=== PATIENT | female | born 1995 | race Caucasian/White ===

== ENCOUNTER 2022-07-16 22:45 | Outpatient (REF) | payer OTHER, SELFPAY ==
[2022-07-21 16:09] LABS: Age Gdln ACOG Testing Note (.); IGP, rfx Aptima HPV ASCU Note (.)
== END 2022-07-16 22:46 ==
LOC: LAB 22:45
PROVIDERS: PCP Obstetrics & Gynecology; Visit Provider Obstetrics & Gynecology
DX: Z12.4 Encounter for screening for malignant neoplasm of cervix (principal)
CPT/HCPCS: G0145

== ENCOUNTER 2023-10-19 18:54 | Outpatient (REF) | payer OTHER, SELFPAY | END 2023-10-19 18:55 | disposition home or self-care (01) | LOC: LAB 18:54 | PROVIDERS: PCP Obstetrics & Gynecology; Visit Provider Obstetrics & Gynecology | DX: Z01.419 Encounter for gynecological examination (general) (routine) without abnormal findings (principal) | CPT/HCPCS: 88175 ==

== ENCOUNTER 2024-10-24 19:41 | Outpatient (REF) | payer OTHER, SELFPAY ==
--- OUTSIDE RECORDS SUMMARY | 2023-06-08 09:12 | XMS_ITS ---
Author Organization [facility] in [place] Address [address] [place] [address] Care Team Providers Care Clinical Law Professor Name Role Phone Gray Mitchell Primary Care Provider ANGE MITCHELL Unavailable [phone] REASON FOR VISIT Allergy Injection Encounters Encounter Location Date Provider Diagnosis [facility] [address] [facility] [place] [address] 06/08/2023 ANGE MITCHELL Plan Of Treatment No Information Progress Notes * Lacy PULIDODuncanOB:1995 ( 28 yo F)Acc No.[id number]:06/08/2023 Patient: Sarah AGUIRRE :1995 A ge:28 Y S ex:Female Address:[address] [place] [id number] * true * Date: Generated for Baljeet greenwood/Thang/eTransmitting on: 0 10/24/2024 07:44 PM EDT
--- OUTSIDE RECORDS SUMMARY | 2023-06-09 09:15 | XMS_ITS ---
Author Organization [facility] in [place] Address [address] [place] [address] Care Team Providers Care Competitive Intelligence Analyst Name Role Phone [place] Gray Primary Care Provider [phone] ANGE WYMAN Unavailable [phone] REASON FOR VISIT presents to the office for Kenalog 80mg (Allergies) Encounters Encounter Location Date Provider Diagnosis [address] [address] 06/09/2023 ANGE WYMAN Acute allergic rhinitis J30.9 Assessments Encounter Date Diagnosis (ICD Code) Assessment Notes Treatment Notes Treatment Clinical Notes Section Notes 06/09/2023 Acute allergic rhinitis (ICD-10 - J30.9) Plan Of Treatment No Information Medications Administered Medication Instructions Date of Administration Dosage Notes Kenalog-40 06/09/2023 80 mg Progress Notes * Lacy PULIDODuncanOB:1995 ( 28 yo F)Acc No.[id number]:06/09/2023 Progress Note Patient: Sarah AGUIRRE Provider: Sheyla Wyman M.D. :1995 A ge:28 Y S ex:Female Date:06/09/2023 Address:[address] [place] [id number] Check In:01:11 PM ESTCheck O ut:01:13 PM EST Subjective: * Chief Complaints: * 1 . presents to the office for Kenalog 80mg (Allergies). * Active Problem List J30.9 Acute allergic rhini tis Modified On:04/21/2022/U Status:confirmed J01.90 Acute sinus infectio n Modified On:12/17/2022 Status:confirmed U07.1 COVID-19 Modified On:02/01/2023U Status:confirmed * Medical History: Objective: * Vitals: Assessment: * Assessment: 1. A cute allergic rhinitis - J30.9 (Primary) Plan: * Treatment: * Therapeutic Injections: Kenalog, 40 mg/mL : 80 mg (Route: Intramuscular) given by LESLEE Sanchez on left deltoid (Acute allergic rhinitis) * Procedure Codes: 9 6372 THERAP.INJ. OF MED. INTRAMUSCULAR OR SUBCUTANEOUS, J3301 Kenalog, 40 mg/mL, Units: 8.00 * * Sign off status: Completed Visit Status: C HK (Check Out) true * Provider: Sheyla Wyman M.D. Date: 0 06/09/2023 Generated for Baljeet greenwood/Thang/Zacharyitting on: 0 10/24/2024 12:49 PM EDT
--- OUTSIDE RECORDS SUMMARY | 2024-01-12 09:45 | XMS_ITS ---
Author Organization [facility] in [place] Address [address] [place] [address] Care Team Providers Care Purchasing And Claims Supervisor Name Role Phone Gray Wyman Primary Care Provider Allergies No Known Allergies REASON FOR VISIT Requesting injection for allergies Medications Medication SIG (Take, Route, Frequency, Duration) Notes Start Date End Date Status metFORMIN HCl 500 MG 1 tablet with a kaye l Orally Once a day Active ZyrTEC 10 MG 1 tablet Orally Once a day Active Spironolactone 50 MG 1 tablet Orally Onc e a day Active Vitamin D (Ergocalciferol) 59137 UNIT 1 capsule Orally Active Social History Tobacco Use: Social History Observation Description Date Details (start date - stop date) Never Smoker NA - NA Tobacco Use/Smoking Question Answer Notes Patient is a nonsmoker AUDIT-C (Standard) Question Answer Notes Did you have a drink containing alcohol in the p ast year? No Points 0 Interpretation Negative Vital Signs Weight 268 lbs 01/12/2024 Height 63 in 01/12/2024 Blood pressure systolic 128 mm Hg 01/12/20 24 Blood pressure diastolic 86 mm Hg 024 BMI 47.47 kg/m2 01/12/2024 Encounters Encounter Location Date Provider Diagnosis [facility] [address] [place] [address] 01/12/2024 Gray Wyman Acute non-recurrent sinusitis, unspecified location J01.90 and Nasal congestion R09.81 Assessments Encounter Date Diagnosis (ICD Code) Assessment Notes Treatment Notes Treatment Clinical Notes Section Notes 01/12/2024 Acute non-recurrent sinusitis, unspecified location (ICD-10 - J01.90) Rest and drink more liquids, especially water. You may use a humidifier or vaporizer to help keep the drainage moist. Vohd-hpa-tpioadi Nasal Saline may help the stuffy and runny nose. Use Ibuprofen and or Tylenol as needed for fever, chills, body aches or pain. Children 5 years old should not be given etll-izi-ilhyztx cough and cold medications such as guaifenesin and dextromethorphan. If you're over age 5, you may try eiqx-hmk-gkqjnhw cold medications such as guaifenesin and dextromethorphan, or multi-symptom cold reliever such as Dayquil to help reduce the symptoms. Antibiotics have been prescribed. You should take these until completed and follow the directions. Antibiotics can sometimes cause upset stomach, and in rare cases, serious allergic reactions or serious gastrointestinal problems. If you start having severe abdominal pain, severe vomiting, or bloody diarrhea, you should be reevaluated by your physician or urgent care immediately. Follow up with your Primary Care Provider or return to clinic if symptoms do not improve within 3-5 days 01/12/2024 Nasal congestion (ICD-10 - R09.81) Plan Of Treatment Treatment Notes Assessment Notes Acute non-recurrent sinusiti s, unspecified location Rest and drink more liquids, especially water. You may use a humidifier or vaporizer to help keep the drainage moist. Rsdv-afb-zqhuixp Nasal Saline may help the stuffy and runny nose. Use Ibuprofen and or Tylenol as needed for fever, chills, body aches or pain. Children 5 years old should not be given depg-yul-mmvhzkn cough and cold medications such as guaifenesin and dextromethorphan. If you're over age 5, you may try nfcv-aet-xxmfgjd cold medications such as guaifenesin and dextromethorphan, or multi-symptom cold reliever such as Dayquil to help reduce the symptoms. Antibiotics have been prescribed. You should take these until completed and follow the directions. Antibiotics can sometimes cause upset stomach, and in rare cases, serious allergic reactions or serious gastrointestinal problems. If you start having severe abdominal pain, severe vomiting, or bloody diarrhea, you should be reevaluated by your physician or urgent care immediately. Follow up with your Primary Care Provider or return to clinic if symptoms do not improve within 3-5 days Next Appt Details Follow Up: 3-5 days if not i mproving, Reason: Medications Administered Medication Instructions Date of Administration Dosage Notes Triamcinolone 40 mg/ml 01/12/2024 80 mg Progress Notes * Kavitha PULIDOOB:1995 ( 28 yo F)Acc No.[id number]:01/12/2024 Progress Note Patient: Sarah AGUIRRE Provider: Sheyla Wyman ([facility])MD :1995 A ge:28 Y S ex:Female Date:01/12/2024 Address:[address] [place], [place] [phone] Check In:01:40 PM ESTCheck O ut:02:14 PM EST Subjective: * Chief Complaints: * R equesting injection for allergies * HPI: G eneral: has PCOS _ on meds feels like allergies. S inusitis: The patient complains of symptoms of sinus infection. The symptoms have been present for 1-2 days. The symptoms are moderate. Symptomatic treatment has included OTC medication. Associated symptoms include headache, facial pain, runny nose, nasal congestion. D epression Screening: PHQ-2 (2015 Edition) L ittle interest or pleasure in doing things??Not at all F eeling down, depressed, or hopeless? N ot at all T otal Score 0 * ROS: S kin: Rash d enies. E NT: Comments S ee HPI for details. C ardiovascular: Edema d enies. P alpitations d enies. ? R espiratory: Chest pain d enies. C ough d enies. W heezing?denies. G astrointestinal: Abdominal pain d enies. N ausea d enies. V omiting d enies. * Active Problem List J30.9 Acute allergic rhini tis Modified On:04/21/2022/U Status:confirmed J01.90 Acute sinus infectio n Modified On:12/17/2022/U Status:confirmed U07.1 COVID-19 Modified On:02/01/2023/U Status:confirmed * Medical History: * Surgical History: F racture right radius 2005 * Hospitalization/Major Diagno stic Procedure: D enies Past Hospitalization * Family History: F ather: alive 56 yrs. M other: alive 55 yrs, diagnosed with Unspecified essential hypertension. S ister(s): alive. 1 sister(s) - healthy. . * Social History: T obacco Use: T obacco Use/Smoking P atient is a n onsmoker D rug/Alcohol: A ESTEFANIA-C (Standard) D id you have a drink containing alcohol in the past year? N o P oints 0 I nterpretation N egative * Medications: T akingmetFORMIN HCl 500 MG Tablet 1 tablet with a meal Orally Once a day Spironolactone 50 MG Tablet 1 tablet Orally Once a day Vitamin D (Ergocalciferol) 75253 UNIT Capsule 1 capsule Orally ZyrTEC(Cetirizine HCl) 10 MG Tablet Chewable 1 tablet Orally Once a day Taking metFORMIN HCl 500 MG Tablet 1 tablet with a meal Orally Once a day Taking Spironolactone 50 MG Tablet 1 tablet Orally Once a day Taking Vitamin D (Ergocalciferol) 92534 UNIT Capsule 1 capsule Orally Taking ZyrTEC(Cetirizine HCl) 10 MG Tablet Chewable 1 tablet Orally Once a day DiscontinuedAmoxicillin-Pot Clavulanate 875-125 MG Tablet 1 tablet Orally every 12 hrs Azithromycin 250 MG Tablet 2 tabs day 1, then 1 tab Orally qd dexAMETHasone 6 MG Tablet 1 tablet Orally qday Paxlovid (300/100)(Nirmatrelvir&Ritonavir 300/100) 20 x 150 MG & 10 x 100MG Tablet Therapy Pack 3 tablets Orally Twice a day Medication List reviewed and reconciled with the patientDiscontinued Amoxicillin-Pot Clavulanate 875-125 MG Tablet 1 tablet Orally every 12 hrs Discontinued Azithromycin 250 MG Tablet 2 tabs day 1, then 1 tab Orally qd Discontinued dexAMETHasone 6 MG Tablet 1 tablet Orally qday Discontinued Paxlovid (300/100)(Nirmatrelvir&Ritonavir 300/100) 20 x 150 MG & 10 x 100MG Tablet Therapy Pack 3 tablets Orally Twice a day Medication List reviewed and reconciled with the patient * Allergies: N .K.D.A.no[Allergies Verified] Objective: * Vitals: W t:268lbs, Ht: 63 in, BP:128/86mm Hg, BMI:47.47Index, Ht-cm: 160.02 cm, Wt-k.56 kg. * Examination: G eneral Examination: GENERAL APPEARANCE: in no acute distress, well developed, well nourished. ENT: ear and nose external appearance normal, tympanic membranes clear bilaterally, facial tenderness to palpation over sinuses. EYES: pupils equal, round, reactive to light and accomodations. ORAL CAVITY: mucosa moist. NECK: n mary jo supple, full range of motion, no cervical lymphadenopathy. LUNGS: c lear to auscultation bilaterally. CARDIO: no murmurs, regular rate and rhythm, S1, S2 normal. ABDOMEN: soft, nontender , not distended, bowel sounds are active. SKIN: no suspicious lesions, warm and dry. EXTREMITIES: no clubbing, cyanosis, or edema. NEUROLOGIC: nonfocal, motor strength of upper/lower extremities intact , sensory exam intact. Assessment: * Assessment: 1. A cute non-recurrent sinusitis, unspecified location - J01.90 (Primary) 2 .?Nasal congestion - R09.81 Plan: * Treatment: * Therapeutic Injections: Triamcinolone 40 mg/ml : 80 mg (Route: Intramuscular) given by AREN Ron on left deltoid (Acute non-recurrent sinusitis, unspecified location) * Procedure Codes: 9 6372 THERAP.INJ. OF MED. INTRAMUSCULAR OR [id number] TMC ACET,PER 10MG., Units: 8.00 * Preventive Medicine: Screenings/Counseling: B OR ACTION PLAN Above Normal BMI Follow-up D ietary management education, guidance, and counseling * Follow Up: 3 -5 days if not improving * * Sign off status: Completed Visit Status: C HK (Check Out) true * Provider: Sheyla Wyman ([facility])MD Date: 03/13/2023 Generated for Baljeet greenwood/Thang/Zacharyitting on: 0 10/24/2024 12:49 PM EDT History and Physical Notes * HPI (History of Present Illness) Category Sub-Category Detail Notes Category Not es General has PCOS _ on meds feels like allergies Depression Screening PHQ-2 (2015 Edition) Little interest or pleasure in doing things?: Not at all Feeling down, depressed, or hopeless?: N ot at all Total Score: 0 Examination Category Sub-Category Detail Notes Category Not es General Examination GENERAL APPEARANCE: in no ac [place] distress, well developed, well nourished ENT: ear and nose externa l appearance normal, tympanic membranes clear bilaterally, facial tenderness to palpation over sinuses EYES: pupils equal, round, reactive to light and accomodations NECK: neck supple, full ra nge of motion, no cervical lymphadenopathy CARDIO: no murmurs, regular rate and rhythm, S1, S2 normal LUNGS: clear to auscultatio n bilaterally ABDOMEN: soft, nontender , no t distended, bowel sounds are active NEUROLOGIC: nonfocal, motor stre ngth of upper/lower extremities intact , sensory exam intact SKIN: no suspicious lesion s, warm and dry EXTREMITIES: no clubbing, cyanosi s, or edema ORAL CAVITY: mucosa moist
--- OUTSIDE RECORDS SUMMARY | 2024-10-24 13:10 | XMS_ITS | Encounter Summary ---
Author Organization [facility] Address [address] [facility] [place] [address] Care Team Providers Care Mechanical Fitter Name Role Phone Fawad Wyman MD Primary Care Provider [phone] Reason for Visit * Reason Comments Gynecologic Exam Encounter Details Date Type Department Care Team (Latest Contact Info) Description 10/24/2024 1:10 PM EDT [facility] [address] [place], [phone] Quyen Handley PA [address] [place], [facility]11 Well woman exam with routine gynecological exam; Uterine polyp; Urinary urgency; Retention of urine Social History Tobacco Use Types Packs/Day Years Used Date Smoking Tobacco: Never Smokeless Tobacco: Never Alcohol Use Standard Drinks/Week Comments Never 0 (1 standard drink = 0.6 oz pur e alcohol) caffeine intake: occasional Comments No Sex and Gender Information Value Date Recorded Sex Assigned at Not on file Legal Sex Female 7:03 PM EDT Gender Identity Female 10/17/2024 12:40 PM EDT Sexual Orientation Not on file documented as of this encounter Last Filed Vital Signs Vital Sign Reading Time Taken Comments Blood Pressure 138/90 10/24/2024 1:03 PM EDT Pulse - - Temperature - - Respiratory Rate - - Oxygen Saturation - - Inhaled Oxygen Concentration - - Weight 127 kg (279 lb) 10/24/2024 1:03 PM EDT Height - - Body Mass Index 49.42 10/19/2023 10:59 AM EDT documented in this encounter Progress Notes * THEODORE Ardon - 10/24/2024 1:10 PM EDT Reason for Appointment: Patient ID: Sarah Pulido is a 29 y.o. female who presents for Gynecologic Exam Patient presents today for Annual Exam. and Follow up appointment to discuss results. MEDICATIONS Current Outpatient Medications Medication Instructions desogestrel-ethinyl estradiol (Apri) 0.15-30 MG-MCG tablet 1 tablet, Oral, Daily, as directed fexofenadine-pseudoephedrine ER (Deisi-D) 60-120 MG 12 hr tablet 1 tablet, Oral, 2 times daily, Do not crush, chew, or split. metFORMIN XR (GLUCOPHAGE-XR) 500 mg, Oral, 2 times daily, Do not crush, chew, or split. spironolactone (ALDACTONE) 50 mg, Oral, Daily ALLERGIES Allergies Allergen Reactions Adapalene Unknown PROBLEMS Active Ambulatory Problems Diagnosis Date Noted No Active Ambulatory Problems Resolved Ambulatory Problems Diagnosis Date Noted No Resolved Ambulatory Problems Past Medical History: Diagnosis Date Asthma (HCC) PCOS (polycystic ovarian syndrome) HISTORY PAST MEDICAL HISTORY SOCIAL HISTORY Past Medical History: Diagnosis Date Asthma (HCC) PCOS (polycystic ovarian syndrome) Social History Tobacco Use Smoking status: Never Smokeless tobacco: Never Substance Use Topics Alcohol use: Never Comment: caffeine intake: occasional Drug use: Never FAMILY HISTORY Family History Problem Relation Name Age of Onset Thyroid disease Father Donell SURGICAL HISTORY Past Surgical History: Procedure Laterality Date COSMETIC SURGERY LT eye; disease TONSILLECTOMY 01/2011 SMR Inf. Turbs REVIEW OF SYSTEMS Review of Systems: Review of Systems Constitutional: Negative. HENT: Negative. Eyes: Negative. Respiratory: Negative. Cardiovascular: Negative. Gastrointestinal: Negative. Genitourinary: Negative. Musculoskeletal: Negative. Skin: Negative. Neurological: Negative. All other systems reviewed and are negative. Hematological: Negative. Endocrine: Negative. Allergic/Immunologic: Negative. OBJECTIVE Objective: Physical Exam Constitutional: Appearance: Normal appearance. She is well-developed. Genitourinary: Vulva normal. Cardiovascular: Rate and Rhythm: Normal rate and regular rhythm. Pulmonary: Effort: Pulmonary effort is normal. Breath sounds: Normal breath sounds. Abdominal: General: Bowel sounds are normal. There is no distension. Palpations: Abdomen is soft. Tenderness: There is no abdominal tenderness. There is no guarding or rebound. Musculoskeletal: General: No swelling. Normal range of motion. Right lower leg: No edema. Left lower leg: No edema. Neurological: Mental Status: She is alert and oriented to person, place, and time. Skin: General: Skin is warm and dry. Psychiatric: Mood and Affect: Mood normal. Behavior: Behavior normal. Vitals and nursing note reviewed. Exam conducted with a inspector crystal present. Vitals: Estimated body mass index is 49.42 kg/m?? as calculated from the following: Height as of 10/19/23: 5' 3 . Weight as of this encounter: 279 lb. BP: 138/90 Patient's last menstrual period was 10/23/2024 (exact date). ASSESSMENT & PLAN ICD-10-CM 1. Well woman exam with routine gynecological exam Z01.419 Pap Smear 2. Uterine polyp N84.0 3. Urinary urgency R39.15 4. Retention of urine R33.9 No orders of the defined types were placed in this encounter. Annual Wellness Exam: Patient presents today for routine annual exam. Patient states she has complaints of urinary retention, urgency and incontinence. Discussed ultrasound with pt in detail, uterine polyps noted - pt to be scheduled for d&c hysteroscopy poss myosure and mirena iud placement. . Pt being referred to [facility] for eval Patients vitals were reviewed and within normal limits. Growth and development is noted to be appropriate for age. Menstrual history is noted to be irregular with concerns reported. No mental health concerns was expressed. Pap Smear: Speculum was inserted into the vagina and pap was obtained without difficulty. No HPV testing was performed per age guideline. Patient was advised that pap results could take anywhere from 7 to 10 days to receive and our office will reach out to the patient with those once we have them. Patient canalso view results via [email or web address]. I reinforced importance of condom use for STI prevention. Patient declined cultures to be performed with today's visit. Breast Exam: Upon examination, clinical breast exam was noted to be normal. Patient was counseled on breast self-awareness, including the importance of knowing what is normal for her own breasts and promptly reporting any changes such as new lumps, skin dimpling, nipple discharge, or pain. Screening mammogram recommended annually beginning at age 40 or earlier if risk factors are present. Discussed signs and symptoms of breast cancer and when to seek medical attention. Answered all patient questions. Contraceptive Counseling (if applicable): Patient is currently using oral contraception as a form of contraceptive. Patient desires to switch control to Mirena IUD Follow Up: Patient is to return to our office in one year for annual exam unless needed otherwise. Documented by Chelsey Guidry LPN on behalf of: THEODORE Ardon documented in this encounter Plan of Treatment Upcoming Encounters Date Type Department Care Team (Late st Contact Info) Description 11/02/2024 8:30 AM EDT Consult [facility] [address] [facility] [place] [address] Rogelio Olvera DO [address] [place] [address] 11/05/2025 11:00 AM EDT Procedure Visit [facility] [address] [place] [address] Rogelio Olvera DO [address] [place] [address] Scheduled Orders Name Type Priority Associated Diagnoses Orde r Schedule Pap Smear Pathology and Cytology Routine Well woman exam with routine gynecological exam Ordered: 10/24/2024 documented as of this encounter Visit Diagnoses Diagnosis Well woman exam with routine gynecological exam Routine gynecological examination Uterine polyp Polyp of corpus uteri Urinary urgency Urgency of urination Retention of urine Unspecified retention of urine documented in this encounter Care Teams Mechanical Fitter Relationship Specialty Start Date End Date Fawad Wyman MD [address] [facility] [place] [address] PCP - General Family Medicine 07/16/22 documented as of this encounter
--- OUTSIDE RECORDS SUMMARY | 2024-10-24 19:44 | XMS_ITS | Patient Health Record ---
Author Organization [facility] in [place] Address [address] [place] [address] Care Team Providers Care V Groove Cutter Name Role Phone Gray Wyman Primary Care Provider Allergies No Known Allergies Reason For Referral No Information Medications Medication SIG (Take, Route, Frequency, Duration) Notes Start Date End Date Status metFORMIN HCl 500 MG 1 tablet with a kaye l Orally Once a day Active Spironolactone 50 MG 1 tablet Orally Onc e a day Active Vitamin D (Ergocalciferol) 22144 UNIT 1 capsule Orally Active ZyrTEC 10 MG 1 tablet Orally Once a day Active Social History Tobacco Use: Social History Observation Description Date Details (start date - stop date) Never Smoker NA - NA Tobacco Use/Smoking Question Answer Notes Patient is a nonsmoker AUDIT-C (Standard) Question Answer Notes Did you have a drink containing alcohol in the p ast year? No Points 0 Interpretation Negative Problems Problem Type SNOMED Code ICD Code Onset Dates Problem Status W/U Status Risk Notes Problem Acute sinusitis (37307010) Acute sinus infection (J01.90) Active confirmed Problem Allergic rhinitis (23664912) Acute allergic rhinitis (J30.9) Active confirmed Problem COVID-19 (012681974) COVID-19 (U07.1) Active confirmed Vital Signs Blood pressure diastolic 86 mm Hg 01/12/2024 Height 63 in 01/12/2024 Blood pressure systolic 128 mm Hg 01/12/2024 Weight 268 lbs 01/12/2024 BMI 47.47 kg/m2 01/12/2024 Encounters Encounter Location Date Provider Diagnosis [facility] [address] [place] [address] 01/12/2024 Gray Wyman Acute non-recurrent sinusitis, unspecified location J01.90 and Nasal congestion R09.81 Assessments Encounter Date Diagnosis (ICD Code) Assessment Notes Treatment Notes Treatment Clinical Notes Section Notes 01/12/2024 Acute non-recurrent sinusitis, unspecified location (ICD-10 - J01.90) Rest and drink more liquids, especially water. You may use a humidifier or vaporizer to help keep the drainage moist. Nipk-hhy-nntyfkp Nasal Saline may help the stuffy and runny nose. Use Ibuprofen and or Tylenol as needed for fever, chills, body aches or pain. Children 5 years old should not be given zyxp-fkt-amkjvpn cough and cold medications such as guaifenesin and dextromethorphan. If you're over age 5, you may try rtin-tes-rrvndtt cold medications such as guaifenesin and dextromethorphan, [...] congestion (ICD-10 - R09.81) Plan Of Treatment No Information Insurance Providers Payer Name Payer Address Payer Phone Subscriber Number Group Number Insured Name Patient Relationship to Insured Coverage Start Date Coverage End Date [facility] [address] [address] [place] [phone] [id number] Sarah Pulido Self - patient is the insured 3 Medications Administered Medication Instructions Date of Administration Dosage Notes Kenalog-40 12/17/2022 80 mg 80 Kenalog-40 06/09/2023 80 mg Triamcinolone 40 mg/ml 01/12/2024 80 mg Medical (General) History Medical History History ICD Code Polycystic ovary syndrome E28.2 Controlled type 2 diabetes mellitus E11. 9 Irritable bowel disease K58.9 Asthma, exercise induced J45.990 Surgical History Surgery Date(Month/Year) Fracture right radius 2006
--- OUTSIDE RECORDS SUMMARY | 2024-10-24 19:44 | XMS_ITS | Encounter Summary ---
Author Organization [facility] Address [address] [facility] [place] [address] Care Team Providers Care Personal Financial Planner Name Role Phone Fawad Wyman MD Primary Care Provider [phone] Encounter Details Date Type Department Care Team (Late Contact Info) Description 07/16/2022 Abstract [facility] [address] [place] [address] [place] [address] Rogelio Olvera DO [address] [place] [address] Yo [place], [place] [address] Social History Tobacco Use Types Packs/Day Years Used Date Smoking Tobacco: Never Smokeless Tobacco: Never Tobacco Cessation:Counseling Given: Not Answered Alcohol Use Standard Drinks/Week Comments Never 0 (1 standard drink = 0.6 oz pur e alcohol) caffeine intake: occasional Comments Unknown Sex and Gender Information Value Date Recorded Sex Assigned at Not on file Legal Sex Female 7:03 PM EDT Gender Identity Female 10/17/2024 12:40 PM EDT Sexual Orientation Not on file documented as of this encounter Plan of Treatment Upcoming Encounters Date Type Department Care Team (Late Contact Info) Description 11/02/2024 8:30 AM EDT Consult [facility] [address] [place], [place] [address] [address] Rogelio Olvera DO [facility] [place], [place] [address] 11/05/2025 11:00 AM EDT Procedure Visit [facility] [address] [facility] [place] [address] Rogelio Olvera DO [address] [facility] [place] [address] documented as of this encounter Visit Diagnoses Not on filedocumented in this encounter Care Teams Personal Financial Planner Relationship Specialty Start Date End Date Fawad Wyman MD [address] [facility] [place] [address] PCP - General Family Medicine 07/16/22 documented as of this encounter
--- OUTSIDE RECORDS SUMMARY | 2024-10-24 19:44 | XMS_ITS | Encounter Summary ---
Author Organization [facility] Address [address] [facility] [place] [address] Care Team Providers Care Coal Hauler Operator Name Role Phone Fawad Wyman MD Primary Care Provider [phone] Encounter Details Date Type Department Care Team (Late Contact Info) Description 09/10/2022 Abstract [facility] [address] [place] [address] [place] [phone] Quyen Handley PA [address] [facility] [address] [place], [place] [address] Social History Tobacco Use Types Packs/Day Years [...] Info) Description 11/02/2024 8:30 AM EDT Consult [facility] [address] [place] [address] [place] [phone] Rogelio Olvera DO [address] [place], [place] [address] 11/05/2025 11:00 AM EDT Procedure Visit [facility] [address] [place] [phone] Rogelio Olvera DO [address] [facility] [address] [place], [place] [id number] documented as of this encounter Visit Diagnoses Not on filedocumented in this encounter Care Teams Coal Hauler Operator Relationship Specialty Start Date End Date Fawad Wyman MD [address] [facility] [place] [phone] PCP - General Family Medicine 07/16/22 documented as of this encounter
--- OUTSIDE RECORDS SUMMARY | 2024-10-24 19:44 | XMS_ITS | Encounter Summary ---
Author Organization [facility] Address [address] [facility] [place] [address] Care Team Providers Care Bin Filler Name Role Phone Fawad Wyman MD Primary Care Provider [phone] Encounter Details Date Type Department Care Team (Late Contact Info) Description 08/04/2022 Abstract [facility] [address] [place] [address] [place] [phone] Rogelio Olvera DO [address] [place] [address] Yo Garcia, [place] [address] Social History Tobacco Use Types Packs/Day Years [...] Description 11/02/2024 8:30 AM EDT Consult [facility] [place] [phone] Rogelio Olvera DO [facility] [place] [address] 11/05/2025 11:00 AM EDT Procedure [place] [address] Rogelio Olvera DO [address] [facility] [address] [place], [place] [phone] documented as of this encounter Visit Diagnoses Not on filedocumented in this encounter Care Teams Bin Filler Relationship Specialty Start Date End Date Fawad Wyman MD [address] [facility] [place] [address] PCP - General Family Medicine 07/16/22 documented as of this encounter
--- OUTSIDE RECORDS SUMMARY | 2024-10-24 19:44 | XMS_ITS | Encounter Summary ---
Author Organization [facility] Address [address] [facility] [place] [address] Care Team Providers Care Client Program Manager Name Role Phone Fawad Wyman MD Primary Care Provider [phone] Reason for Visit * Reason Comments Med Refill Encounter Details Date Type Department Care Team (Late st Contact Info) Description 06/29/2023 Refill [facility] [address] [facility] [place] [address] Rogelio Olvera DO [address] [facility] [place] [address] Encounter for other contraceptive management Social History Tobacco Use Types Packs/Day Years [...] on file documented as of this encounter Miscellaneous Notes * Telephone Encounter - Noy Houston LPN - 06/29/2023 8:34 AM EDT Approving, but needs appt for additional refills. documented in this encounter Plan of Treatment Upcoming Encounters Date Type Department Care Team (Late st Contact Info) Description 11/02/2024 8:30 AM EDT Consult [facility] [address] [facility] [place] [address] Rogelio Olvera, DO [address] [facility] [place] [address] 11/05/2025 11:00 AM EDT Procedure Visit [facility] [address] [facility] [place] [address] Rogelio Olvera, DO [address] [facility] [place] [address] documented as of this encounter Visit Diagnoses Diagnosis Encounter for other contraceptive management documented in this encounter Care Teams Client Program Manager Relationship Specialty Start Date End Date Fawad Wyman MD [address] [facility] [place] [address] PCP - General Family Medicine 07/16/22 documented as of this encounter
--- OUTSIDE RECORDS SUMMARY | 2024-10-24 19:45 | XMS_ITS | Encounter Summary ---
Author Organization [facility] Address [address] [facility] [place] [address] Care Team Providers Care Customer Manager Name Role Phone Fawad Wyman MD Primary Care Provider [phone] Encounter Details Date Type Department Care Team (Late Contact Info) Description 10/24/2024 Telephone [facility] [address] [place] [address] Chelsey Guidry LPN Social History Tobacco Use Types Packs/Day Years [...] encounter Miscellaneous Notes * Telephone Encounter - Chelsey Guidry LPN - 10/24/2024 11:15 AM EDT Please refer to Urology for incontinence urgency and urinary retention documented in this encounter Plan of Treatment Upcoming Encounters Date Type Department Care Team (Late st Contact Info) Description 11/02/2024 8:30 AM EDT Consult [facility] [address] [place] [address] Rogelio Olvera DO [address] [place] [address] 11/05/2025 11:00 AM EDT Procedure Visit [facility] [address] [place] [address] Rogelio Olvera DO [address] [facility] [place] [address] documented as of this encounter Visit Diagnoses Not on filedocumented in this encounter Care Teams Customer Manager Relationship Specialty Start Date End Date Fawad Wyman MD [address] [facility] [place] [address] PCP - General Family Medicine 07/16/22 documented as of this encounter
--- OUTSIDE RECORDS SUMMARY | 2024-10-24 19:45 | XMS_ITS | Encounter Summary ---
Author Organization [facility] Address [address] [facility] [place] [address] Care Team Providers Care Political Science Professor Name Role Phone Fawad Wyman MD Primary Care Provider [phone] Encounter Details Date Type Department Care Team (Late Contact Info) Description 10/24/2024 Bamboo flowsheet [facility] [address] [place] [address] Rogelio Olvera DO [address] [place] [address] Yo Garcia, [place] [address] Social History Tobacco Use Types Packs/Day Years [...] Description 11/02/2024 8:30 AM EDT Consult [facility]ER[facility] [address] [place] [address] Rogelio Olvera DO [facility] [place]leigh [place], [place] [address] 11/05/2025 11:00 AM EDT Procedure Visit [facility] [address] [facility] [place] [phone] Rogelio Olvera DO [address] [facility] [place] [address] documented as of this encounter Visit Diagnoses Not on filedocumented in this encounter Care Teams Political Science Professor Relationship Specialty Start Date End Date Fawad Wyman MD [address] [facility] [place] [address] PCP - General Family Medicine 07/16/22 documented as of this encounter
--- OUTSIDE RECORDS SUMMARY | 2024-10-24 19:45 | XMS_ITS | Encounter Summary ---
Author Organization [facility] Address [address] [facility] [place] [address] Care Team Providers Care Business Initiatives Manager Name Role Phone Fawad Wyman MD Primary Care Provider [phone] Encounter Details Date Type Department Care Team (Latest Contact Info) Description 10/17/2024 Travel Social History Tobacco Use Types Packs/Day Years [...] 11/02/2024 8:30 AM EDT Consult [facility] [address] [place] [address] [place] [address] Rogelio Olvera, DO [address] [place], [facility] 11/05/2025 11:00 AM EDT Procedure Visit [facility] [address] [place] [address] Rogelio Olvera, DO [address] [place] [address] documented as of this encounter Visit Diagnoses Not on filedocumented in this encounter Care Teams Business Initiatives Manager Relationship Specialty Start Date End Date Fawad Wyman MD [address] [place] [address] PCP - General Family Medicine 07/16/22 documented as of this encounter
--- OUTSIDE RECORDS SUMMARY | 2024-10-24 19:45 | XMS_ITS | Encounter Summary ---
Author Organization [facility] Address [address] [facility] [place] [address] Care Team Providers Care Coding Compliance Auditor Name Role Phone Fawad Wyman MD Primary Care Provider [phone] Encounter Details Date Type Department Care Team (Latest Contact Info) Description 10/24/2024 Travel Social History Tobacco Use Types Packs/Day [...] 11/02/2024 8:30 AM EDT Consult [facility] [address] [place] [address] [place] [address] Rogelio Olvera, DO [address] [place], [facility] 11/05/2025 11:00 AM EDT Procedure Visit [facility] [address] [place] [address] Rogelio Olvera, DO [address] [place], [place] [phone] documented as of this encounter Visit Diagnoses Not on filedocumented in this encounter Care Teams Coding Compliance Auditor Relationship Specialty Start Date End Date Fawad Wyman MD [address] [place] [address] PCP - General Family Medicine 07/16/22 documented as of this encounter
--- OUTSIDE RECORDS SUMMARY | 2024-10-24 19:45 | XMS_ITS | Encounter Summary ---
Author Organization [facility] Address [address] [facility] [place] [address] Care Team Providers Care Slot Host Name Role Phone Fawad Wyman MD Primary Care Provider [phone] Encounter Details Date Type Department Care Team (Late Contact Info) Description 10/25/2023 Orders Only [facility] [place] [address] Chantal Sneed LPN [address] [place] [address] Social History Tobacco Use Types Packs/Day Years [...] AM EDT Consult [facility] [address] [facility] [address] Rogelio Olvera DO [address] [facility] [address] [place], [place] [phone] 11/05/2025 11:00 AM EDT Procedure Visit [facility] [address] [place] [address] [place] [address] Rogelio Olvera DO [address] [facility] [place] [address] documented as of this encounter Procedures Procedure Name Priority Date/Time Associated Diagnosis Comments PAP SMEAR Routine 10/19/2023 12:00 AM EDT documented in this encounter Results * Pap Smear (10/19/2023 12:00 AM EDT) Swab Cervical swab / Unknown us Rogelio Olvera DO LAB CYTOLOGY ORDERABLES Final Re sult EXTERNAL LAB documented in this encounter Visit Diagnoses Not on filedocumented in this encounter Care Teams Slot Host Relationship Specialty Start Date End Date Fawad Wyman MD [address] [facility] [place] [address] PCP - General Family Medicine 07/16/22 documented as of this encounter
--- OUTSIDE RECORDS SUMMARY | 2024-10-24 19:48 | XMS_ITS | CCD ---
Author Organization [facility] Care Team Providers Care School Librarian Name Role Phone Michel Chavez Unavailable Unavailable Fawad Wyman~[phone] UNKNOWN Unavailable Unavailable Fawad yWman MD Primary Care Provider [id number] Fawad Wyman MD Primary Care Provider [phone] ESTELA PÉREZ Attending Unavailable ALICIA MAGDALENO Referring Unavailable ALICIA MAGDALENO Primary Care Unavailable ALICIA MAGDALENO Primary Care Unavailable BOWLES, RICKEY E Referring Unavailable BOWLES, RICKEY E Attending Unavailable WADE ., DR HUMMEL Attending Unavailable WADE ., DR HUMMEL Consulting Unavailable WADE ., DR HUMMEL Admitting Unavailable PAULA ., DR CASSIDY Primary Care Unavailable Fawad Wyman MD Primary Care Provider [phone] QUYEN COPELAND Referring Unavailable SHAHEED OLVERA Attending Unavailable Fawad Wyman MD Primary Care Provider [phone] Allergies Allergy Classification Reported Allergen(s) Allergy Type Date of Onset Reaction(s) Facility (3 sources) adapalene; Translations: [ADAPALENE] Drug Allergy 02-07-2008 [facility] (6 sources) adapalene Drug Allergy 07-15-2022 Unknown [facility] Work Phone: Medications Current Medications Medication Drug Class(es) Dates Sig (Normalized) Sig (Original) desogestrel 0.15 mg / ethinyl estradiol 0.03 mg oral tablet (6 sources) Progestin, Estrogen Start: 09-15-2024 desogestrel-ethinyl estradiol (Apri) 0.15-30 MG-MCG tablet Indications: Encounter for other contraceptive management Take 1 tablet by mouth Daily as directed 56 tablet 12 09/15/2024 Active Start: 08-23-2023 desogestrel-et hinyl estradiol (Apri) 0.15-30 MG-MCG tablet Indications: Encounter for other contraceptive management TAKE 1 TABLET BY MOUTH DAILY DIRECTED 56 tablet 12 08/23/2023 Active ethinyl estradiol 0.035 mg / norethindrone acetate 1 mg oral tablet (3 sources) Estrogen Start: 03-24-2022 take 1 tablet by mouth once daily Alyacen 1/35 1-35 MG-MCG tablet Take 1 tablet by mouth 1 (one) time each day at the same time. 03/24/2022 Active Start: 03-28-2021 End: 02-27-2022 take 1 tablet by mouth once daily, then take [id number] tablet by mouth once Norethindrone-Eth Estradiol (ALYACEN 1/35, 28,) 1-35 mg-mcg per tablet Take 1 tablet by mouth once daily. 84 tablet 3 03/28/2021 02/27/2022 Active Comment on above: Take 1 tablet by ant th once daily. 12 hr fexofenadine hydrochloride 60 mg / pseudoephedrine hydrochloride 120 mg extended release oral tablet (6 sources) alpha-Adrenergic Agonist, Histamine-1 Receptor Antagonist take 1 tablet by mouth once in the morning, then take 1 tablet by mouth every twelve hours at bedtime fexofenadine-pseud oephedrine ER (Deisi-D) 60-120 MG 12 hr tablet Take 1 tablet by mouth in the morning and 1 tablet before bedtime. Do not crush, chew, or split. . Active 24 hr metFORMIN hydrochloride 500 mg extended release oral tablet (9 sources) Biguanide Start: take 1 tablet by mouth every twenty-four hours in the morning metFORMIN XR (Glucophage-XR) 500 MG 24 hr tablet Indications: Encounter for weight management Take 1 tablet (500 mg) by mouth in the morning and 1 tablet (500 mg) before bedtime. Do not crush, chew, or split.. 60 tablet 11 11/03/2023 Active Start: 05-28-2023 take 1 tablet by ant th twice daily at mealtime metFORMIN XR (Glucophage-XR) 500 MG 24 hr tablet Indications: Insulin resistance TAKE ONE TABLET BY MOUTH TWICE A DAY WITH A MEAL 60 tablet 05/28/2023 Active Start: 03-28-2021 take 1 tablet by ant th once daily at mealtime metFORMIN ER (GLUCOPHAGE XR) 500 mg 24 hr tablet Indications: Androgen excess TAKE 1 TABLET BY MOUTH EVERY DAY IN THE EVENING WITH FOOD 90 tablet 3 03/28/2021 Active metFORMIN (Gluco phage) 1000 MG tablet Take 500 mg by mouth in the morning and 500 mg in the evening. Take with meals. Active Comment on above: TAKE 1 TABLET BY ANT TH EVERY DAY IN THE EVENING WITH FOOD phentermine hydrochloride 37.5 mg oral tablet (2 sources) Sympathomimetic Amine Anorectic Start: 023 take 1 tablet by mouth before mealtime phentermine (Adipex-P) 37.5 MG tablet Indications: Encounter for weight management Take 1 tablet (37.5 mg) by mouth in the morning. Take before meals. 30 tablet 09/10/2022 Active spironolactone 50 mg oral tablet (9 sources) Aldosterone Antagonist Start: 025 take 1 tablet by mouth once daily spironolactone (Aldactone) 50 MG tablet Indications: Encounter for weight management TAKE 1 TABLET BY MOUTH DAILY 30 tablet 3 08/21/2024 Active Start: 09-15-2023 take 2 tablets by mo uth once daily in the morning spironolactone (Aldactone) 25 MG tablet Indications: Hypertension, unspecified type (CMS/HCC) TAKE 2 TABLETS BY MOUTH EVERY MORNING 120 tablet 09/15/2023 Active Start: 03-28-2021 End: 03-28-2022 take 1 tablet by mouth once daily spironolactone (ALDACTONE) 50 mg tablet Indications: Androgen excess Take 1 tablet by mouth once daily. 90 tablet 3 03/28/2021 03/28/2022 Active Comment on above: Take 1 tablet by atn th once daily. Problems Active Problems Problem Classification Problem Date Documented Da te Episodic/Chronic Diabetes mellitus without complication (1 source) Impaired fasting glycemia; Translations: [Impaired fasting glucose] Episodic Genitourinary symptoms and ill-defined conditions (2 sources) Urgent desire to urinate; Translations: [Urgency of urination] 10-24-2024 Episodic Nutritional deficiencies (1 source) Vitamin D deficiency; Translations: [Vitamin D deficiency, unspecified] Chronic Other endocrine disorders (1 source) Polycystic ovary syndrome; Translations: [Polycystic ovarian syndrome] Chronic Other endocrine disorders (2 sources) Increased androgen level; Translations: [Androgen excess] Onset: 04-28-2017 04-28-2017 Chronic Other endocrine disorders (4 sources) Polycystic ovarian syndrome; Translations: [POLYCYSTIC OVARIAN SYNDROME] Onset: 04-11-2022 Chronic Other female genital disorders (1 source) Polyp of corpus uteri; Translations: [Polyp of corpus uteri] 10-24-2024 Episodic Other nutritional; endocrine; and metabolic disorders (1 source) Obese class III; Translations: [Obesity, unspecified] Chronic Other nutritional; endocrine; and metabolic disorders (1 source) Body mass index 40+ - severely obese; Translations: [Body mass index (BMI) 50.0-59.9, adult] Chronic Past or Other Problems Problem Classification Problem Date Documented Da te Episodic/Chronic Other skin disorders (2 sources) Disorder of skin and/or subcutaneous tissue; Translations: [Other hypertrophic disorders of the skin] Onset: 11-15-2007 11-15-2007 Episodic Other skin disorders (2 sources) Acne; Translations: [Other acne] Onset: 11-15-2007 11-15-2007 Episodic Other skin disorders (2 sources) Scar conditions and fibrosis of skin; Translations: [Scar conditions and fibrosis of skin] Onset: 11-16-2007 11-16-2007 Episodic Results Test Name Value Interpretation Reference Range Facility US PELVIC COMPLETE W/ TVon 0 09-18-2024 US PELVIC COMPLETE W/ TV FINDINGS: Uterus 7.1 x 3.3 x 4.2cm Endometrium 8mm Right Ovary 2.2 x 1.7 x 2.6cm Left Ovary 2.0 x 1.7 x 2.1 cm Normal uterine orientation. Normal myometrium. Small amount of endometrial fluid neighboring a echogenic 2 mm endometrial region, probable polyp (s). Normal ovaries. No pelvic fluid. IMPRESSION: Endometrial findings, probable several millimeter polyp. Recommend at minimum follow up examinations if tissue sampling is not undertaken. TRANSCRIBED BY: ELECTRONICALLY SIGNED BY: Tiago Noe MD Normal Not Available Comment on above: Order Comment: US PE LVIS-TRANSVAG IF INDICATED No LMP recorded. IGP,APTIMA HPV,AGE GDLNon AGE GDLN ACOG TESTING Note . [facility] Comment on above: TESTS RESULT FLAG UN ITS REF RANGE LAB Clinician Provided Cytology Information Source.............Cervix;Endocervix No. of containers..01 ThinPrep Vial Age Mehul SNOW Maria Esther... FLAG LEGEND: L-Low Normal,H-High Normal,LL-Alert Low,HH-Alert High <-Panic Low,>-Panic High,A-Abnormal,AA-Critical Abnormal Performed at: 01 [facility] [address] [place] [address] Leann Doss MD, IGP, RFX APTIMA HPV ASCU Note . [facility] Comment on above: TESTS RESULT FLAG UN ITS REF RANGE LAB DIAGNOSIS: 02 NEGATIVE FOR INTRAEPITHELIAL LESION OR MALIGNANCY. Specimen adequacy: 02 Satisfactory for evaluation. Endocervical and/or squamous metaplastic cells (endocervical component) are present. Performed by: Blank Mar, Station Inspector ([facility]) . 02 Note: Note 02 The Pap smear is a screening test designed to aid in the detection of premalignant and malignant conditions of the uterine cervix. It is not a diagnostic procedure and should not be used as the sole means of detecting cervical cancer. Both false-positive and false-negative reports do occur. Test Methodology: Note 02 This liquid based ThinPrep(R) pap test was screened with the use of an image guided system. . 02 The HPV DNA reflex criteria were not met with this specimen result therefore, no HPV testing was performed. FLAG LEGEND: L-Low Normal,H-High Normal,LL-Alert Low,HH-Alert High <-Panic Low,>-Panic High,A-Abnormal,AA-Critical Abnormal Performed at: [address] [id number] Leann Doss MD, Performed at: = - [address] [id number] Softball Player: Leann Doss MD, Phone: [phone] Performed at: - [address] [id number] Softball Player: Leann Doss MD, Phone: [phone] BRUSH-SPATULA CERVIX ENDOCERVIX [facility] CORTISOL FREE, SERUMon 04-23 Cortisol, Free Dialysis, LCMS 0.501 ug/dL Normal [facility] Comment on above: Result Comment: Thes e tests were developed and their performance characteristics determined by [facility]. They have not been cleared or approved by the Food and Drug Administration. Reference Range: 8 AM 0.10 - 1.20 4 PM 0.042 - 0.872 Performed By: #### F RECORT #### [facility] [address] [place] [address] Dr. Kirsty Coffman REVERSE T3on 2022 Reverse T3, Serum 25.4 ng/dL Critically high 9.2-24.1 Th e [facility] Comment on above: Result Comment: This test was developed and its performance characteristics determined by [facility]. It has not been cleared or approved by the Food and Drug Administration. Performed By: #### R EVRT3 #### [facility] [address] [place] [address] Dr. Kirsty Coffman THYROGLOBULINon 04-20-2022 Thyroglobulin 33 ng/mL Normal [facility] Comment on above: Result Comment: This test was developed and its performance characteristics determined by [facility]. It has not been cleared or approved by the Food and Drug Administration. Reference Range: Pubertal Children and Adults: <40 According to the National Academy of Clinical Biochemistry, the reference interval for Thyroglobulin (TG) should be related to euthyroid patients and not for patients who underwent thyroidectomy. TG reference intervals for these patients depend on the residual mass of the thyroid tissue left after surgery. Establishing a post-operative baseline is recommended. The assay quantitation limit is 2.0 ng/mL. Performed By: #### T EDY #### [facility] [address] [place] [address] Dr. Kirsty Coffman TESTOSTERONE, FREE,DIRECT, T OTALon 04-18-2022 Free Testosterone(Direct) 1.6 pg/mL Normal 0.0-4.2 [facility] Comment on above: Result Comment: Perf ormed at: BN Performed By: #### C BC #### [facility] [address] [place] [address] Dr. Kirsty Coffman Testosterone [Mass/Vol] 36 ng/dL Normal 13-71 [facility] Comment on above: Result Comment: Perf ormed at: CB Performed By: #### C BC #### [facility] [address] [place] [address] Dr. Kirsty Coffman DHEA SERUMon 04-16-2022 Dehydroepiandrosterone (DHEA) 179 ng/dL Normal 31-701 [facility] Comment on above: Result Comment: Age 1 - 5 years 0 - 67 6 - 7 years 0 - 110 8 - 10 years 0 - 185 11 - 12 years 0 - 201 13 - 14 years 0 - 318 15 - 16 years 39 - 481 17 - 19 years 40 - 491 >19 years 31 - 701 Effective May 04, 2022 DHEA additional age reference intervals will be added. No other age ranges will be affected: 20 - 50 years: 701 >50 years: 21 - 402 Performed By: #### D MEKHI. #### [facility] [address] [place] [address] Dr. Kirsty Coffman ESTRONEon 04-15-2022 Estrone, Serum 56 pg/mL Normal 27-231 [facility] Comment on above: Result Comment: Rang e Adult (Premenopausal) 27 - 231 Menstrual Cycle (1-10 days) 19 - 149 Menstrual Cycle (11-20 days) 32 - 176 Menstrual Cycle (21-30 days) 37 - 200 Performed By: #### C BC #### [facility] [address] [place] [address] Dr. Kirsty Coffman SEROTONINon 04-14-2022 Serotonin, Serum 84 ng/mL Normal 31-207 [facility] Comment on above: Performed By: #### C BC #### [facility] [address] [place] [address] Dr. Kirsty Coffman VIT D 1 25 DIHYDROXYon 04-14 Calcitriol(1,25 di-OH Vit D) 42.6 pg/mL Normal 24.8-81.5 [facility] Comment on above: Performed By: #### L BCFSH #### [facility] [address] [place] [address] Dr. Kirsty Coffman C-PEPTIDE, SERUMon 3 C-Peptide, Serum 4.3 ng/mL Normal 1.1-4.4 [facility] Comment on above: Result Comment: C-Pe ptide reference interval is for fasting patients. Performed By: #### C PEPT #### [facility] [address] [place] [address] Dr. Kirsty Coffman INSULINon 04-13-2022 Insulin 36.2 uIU/mL Critically high 2.6-24.9 [facility] Comment on above: Performed By: #### I NSULIN #### [facility] [address] [place] [address] Dr. Kirsty Coffman THYROGLOBULIN ABon Thyroglobulin Antibody <1.0 Normal 0.0-0.9 [facility] Comment on above: Result Comment: Thyr oglobulin Antibody measured by [facility] Methodology Performed By: #### T HYGAB #### [facility] [address] [place] [address] Dr. Kirsty Coffman DHEA-SULFATEon 04-12-2022 DHEA-Sulfate 344.0 ug/dL Normal 84.8-378.0 [facility] Comment on above: Performed By: #### C BC #### [facility] [address] [address] [address] Kirsty Coffman ESTRADIOLon 04-12-2022 Estradiol 26.7 pg/mL Normal [facility] Comment on above: Result Comment: Adul t Female: Follicular phase 12.5 - 166.0 Ovulation phase 85.8 - 498.0 Luteal phase 43.8 - 211.0 Postmenopausal <6.0 - 54.7 1st trimester 215.0 - >4300.0 Cory ECLIA methodology Performed By: #### C BC #### [facility] [address] [place] [address] Dr. Kirsty Coffman FSHon 04-12-2022 FSH 2.5 mIU/mL Normal [facility] Comment on above: Result Comment: Adul t Female: Follicular phase 3.5 - 12.5 Ovulation phase 4.7 - 21.5 Luteal phase 1.7 - 7.7 Postmenopausal 25.8 - 134.8 Performed By: #### L BCFS #### [facility] [address] [place] [address] Dr. Kirsty Coffman LUTEINIZING HORMONE (LH)on 0 04-12-2022 LH 5.1 mIU/mL Normal [facility] Comment on above: Result Comment: Adul t Female: Follicular phase 2.4 - 12.6 Ovulation phase 14.0 - 95.6 Luteal phase 1.0 - 11.4 Postmenopausal 7.7 - 58.5 Performed By: #### L BCLH #### [facility] [address] [place] [address] Dr. Kirsty Coffman PROGESTERONEon 04-12-2022 Progesterone 0.1 ng/mL Normal [facility] Comment on above: Result Comment: Foll icular phase 0.1 - 0.9 Luteal phase 1.8 - 23.9 Ovulation phase 0.1 - 12.0 First trimester 11.0 - 44.3 Second trimester 25.4 - 83.3 Third trimester 58.7 - 214.0 Postmenopausal 0.0 - 0.1 Performed By: #### L BCFS #### [facility] [address] [place] [address] Dr. Kirsty Coffman SEX HORMONE-BINDING GLOBULIN on 04-12-2022 Sex Horm Binding Glob, Serum 117.0 nmol/L Normal 24.6-122.0 [facility] Comment on above: Performed By: #### C BC #### [facility] [address] [place] [address] Dr. Kirsty Coffman T3, TOTAL (TRIIODOTHYRONINE) on 04-12-2022 T3, TOTAL 252 ng/dL Critically high 71-180 [facility] Comment on above: Performed By: #### C BC #### [facility] [address] [place] [address] Dr. Kirsty Coffman THYROID PEROXIDASE ABon 03-19 Thyroid Peroxidase (TPO) Ab 15 IU/mL Normal 0-34 [facility] Comment on above: Performed By: #### [facility] #### [facility] [address] [place] [address] Dr. Kirsty Coffman CBC AUTO DIFFon 04-11-2022 BASO # 0.1 103/ul Normal 0.0-0.1 [facility] Comment on above: Performed By: #### C BC #### [facility] [address] [place] [address] Dr. Kirsty Coffman Basophils/100 WBC (Bld) 0.7 % Normal 0.2-2.0 [facility] Comment on above: Performed By: #### C BC #### [facility] [address] [place] [address] Dr. Kirsty Coffman EO # 0.2 103/ul Normal 0.0-0.7 [facility] Comment on above: Performed By: #### C BC #### [facility] [address] [place] [address] Dr. Kirsty Coffman Eosinophils/100 WBC (Bld) 2.6 % Normal 0.9-7.0 [facility] Comment on above: Performed By: #### C BC #### [facility] [address] [place] [address] Dr. Kirsty Coffman Erythrocyte distribution width (RBC) [Ratio] 14.8 % Normal 11.0-15.0 [facility] Comment on above: Performed By: #### C BC #### [facility] [address] [place] [address] Dr. Kirsty Coffman Hematocrit (Bld) [Volume fraction] 42.7 % Normal 36.0-48.0 [facility] Comment on above: Performed By: #### C BC #### [facility] [address] [place] [address] Dr. Kirsty Coffman Hemoglobin (Bld) [Mass/Vol] 13.5 g/dL Normal 12.0-16.0 [facility] Comment on above: Performed By: #### C BC #### [facility] [address] [place] [address] Dr. Kirsty Coffman IG # 0.03 10e3/ul Normal 0.00-0.03 [facility] Comment on above: Performed By: #### C BC #### [facility] [address] [place] [address] Dr. Kirsty Coffman IG % 0.4 % Normal 0.0-0.5 [facility] Comment on above: Performed By: #### C BC #### [facility] [address] [place] [address] Dr. Kirsty Coffman LYMPH # 2.2 103/ul Normal 1.2-3.8 [facility] Comment on above: Performed By: #### C BC #### [facility] [address] [place] [address] Dr. Kirsty Coffman Lymphocytes/100 WBC (Bld) 28.1 % Normal 20.5-60.0 [facility] Comment on above: Performed By: #### C BC #### [facility] [address] [place] [address] Dr. Kirsty Coffman MANUAL DIFF REQ NO Normal [facility] Comment on above: Performed By: #### C BC #### [facility] [address] [place] [address] Dr. Kirsty Coffman MCH (RBC) [Entitic mass] 26.0 pg Critically low 26.7-34 .0 [facility] Comment on above: Performed By: #### C BC #### [facility] [address] [place] [address] Dr. Kirsty Coffman MCHC (RBC) [Mass/Vol] 31.6 g/dL Normal 29.9-35.2 [facility] Comment on above: Performed By: #### C BC #### [facility] [address] [place] [address] Dr. Kirsty Coffman MCV (RBC) [Entitic vol] 82.1 fL Normal 81.0-99.0 [facility] Comment on above: Performed By: #### C BC #### [facility] [address] [place] [address] Dr. Kirsty Coffman MONO # 0.5 103/ul Normal 0.3-0.8 [facility] Comment on above: Performed By: #### C BC #### [facility] [address] [place] [address] Dr. Kirsty Coffman Monocytes/100 WBC (Bld) 6.1 % Normal 1.7-12.0 [facility] Comment on above: Performed By: #### C BC #### [facility] [address] [place] [address] Dr. Kirsty Coffman NEUT # 4.8 103/ul Normal 1.4-6.5 [facility] Comment on above: Performed By: #### C BC #### [facility] [address] [place] [address] Dr. Kirsty Coffman Neutrophils/100 WBC (Bld) 62.1 % Normal 43.0-75.0 [facility] Comment on above: Performed By: #### C BC #### [facility] [address] [address] [address] Kirsty Coffman Platelet mean volume (Bld) [Entitic vol] 8.5 fL Critically low 9.5-13.5 [facility] Comment on above: Performed By: #### C BC #### [facility] [address] [place] [address] Dr. Kirsty Coffman PLT 351 103/ul Normal 150-450 [facility] Comment on above: Performed By: #### C BC #### [facility] [address] [place] [address] Dr. Kirsty Coffman RBC 5.20 106/ul Normal 4.20-5.40 [facility] Comment on above: Performed By: #### C BC #### [facility] [address] [place] [address] Dr. Kirsty Coffman WBC 7.7 103/ul Normal 4.0-11.0 [facility] Comment on above: Performed By: #### C BC #### [facility] [address] [place] [address] Dr. Kirsty Coffman FERRITINon 04-11-2022 Ferritin [Mass/Vol] 57.0 ng/mL Normal 6.2-137.0 [facility] Comment on above: Performed By: #### L BCFS #### [facility] [address] [place] [address] Dr. Kirsty Coffman FREE T3on 04-11-2022 FREE T3 3.61 pg/mlL Normal 2.18-3.98 [facility] Comment on above: Performed By: #### L DAVIDFS #### [facility] [address] [place] [address] Dr. Kirsty Coffman FREE T4on 04-11-2022 Free T4 [Mass/Vol] 1.13 ng/dL Normal 0.76-1.46 [facility] Comment on above: Performed By: #### L DAVIDFS #### [facility] [address] [place] [address] Dr. Kirsty Coffman GLUCOSE BLOODon 04-11-2022 Glucose [Mass/Vol] 93 mg/dL Normal 74-106 [facility] Comment on above: Performed By: #### L BCFSH #### [facility] [address] [place] [address] Dr. Kirsty Coffman GLYCOHEMOGLOBIN A1Con 2022 ADA RECOMMENDATION SEE BELOW Normal [facility] Comment on above: Result Comment: ADA RECOMMENDED LIMIT 4.0 - 6.0 ADA THERAPEUTIC TARGET < 7.0 ACTION SUGGESTED > 7.0 Performed By: #### C BC #### [facility] [address] [address] [address] Kirsty Coffman Glucose [Mass/Vol] 111 mg/dL Normal [facility] Comment on above: Performed By: #### C BC #### [facility] [address] [place] [address] Dr. Kirsty Coffman HbA1c (Bld) [Mass fraction] 5.5 % Normal 4.5-6.2 [facility] Comment on above: Performed By: #### C BC #### [facility] [address] [place] [address] Dr. Kirsty Coffman PREG QUANT HCGon 04-11-2022 HCG QUANT <1 Normal [facility] Comment on above: Performed By: #### L BCFSH #### [facility] [address] [place] [address] Dr. Kirsty Coffman HCG RANGE SEE BELOW Normal [facility] Comment on above: Result Comment: 5-50 0.2-1 WEEK 50-500 1-2 WEEKS 100-5,000 2-3 WEEKS 500-10,000 3-4 WEEKS 1,000-50,000 4-5 WEEKS 10,000-100,000 5-6 WEEKS 15,000-200,000 6-8 WEEKS 10,000-100,000 2-3 MONTHS Performed By: #### L BCFSH #### [facility] [address] [place] [address] Dr. Kirsty Coffman T4on 04-11-2022 T4 [Mass/Vol] 13.30 ug/dL Normal 4.80-13.90 [facility] Comment on above: Performed By: #### L BCFSH #### [facility] [address] [place], [place] [id number] Dr. Kirsty Coffman TSHon 04-11-2022 TSH 3.503 uIU/mL Normal 0.358-3.[address] [facility] Comment on above: Performed By: #### L [facility] #### [facility] [address] [address] [address] Kirsty Coffman CNPNon 12-22-2021 CNPN Telephone (ESPKEM) ---- KOTA COWART ([id number]) 1995 F Date Time Provider Department 12/22/21 ESTELA PÉREZ During your visit today, we recorded the following information about you: Kaylynn Garberments 12/22/2021 12:06 PM Signed Wants her insurance to be prebilled. Gave her billing number. Kaylynn Adia, [facility] [facility] [place] Allergies As of Date: 12/22/2021 Noted Allergy Reaction DIFFERIN (ADAPALENE) 02/07/2008 2 - Rash Date Reviewed: 09/10/2021 Reviewed by: Estela Pérez MD - Fully Assessed Reason for Visit: Patient Question [4542] Prescriptions as of 12/22/2021 - spironolactone (ALDACTONE) 50 mg tablet Take 1 tablet by mouth once daily. - Norethindrone-Eth Estradiol (ALYACEN , ,) 1-35 mg-mcg per tablet Take 1 tablet by mouth once daily. 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] 11/15/2007 ACNE NEC [L70.8] 11/15/2007 SCAR AND FIBROSIS OF SKIN [L90.5] 11/16/2007 Androgen excess [E28.1] 04/28/2017 Encounter Status:Closed by KAYLYNN CHEEK on 12/22/21 [facility] CNOVon 09-10-2021 CNOV Office Visit (ESPKEM) ---- KOTA COWART ([id number]) 1995 F Date Time Provider Department 09/10/21 4:20 PM ESTELA PÉREZ During your visit today, we recorded the following information about you: Pulse Blood pressure Weight Height 79/minute 118/80 133.5 kg 1.6 m Estela Pérez MD 09/10/2021 5:03 PM Signed Endocrinology Initial Consult Visit CC: PCOS Referring Provider: Alicia Magdaleno MD HPI: 26 y/o woman with PCOS here for follow up. Previously followed by Dr. Bowles, last seen 03/28/2021. Today is my first time meeting her. She is here today with her fiance. Menarche around 8th grade, periods never regular. Started on OCPs about 4 years ago. Menses are regular on this. She was told she had cysts on her ovaries on previous ultrasounds. Used to have issues with hair growth but improved since spironolactone and metformin. Mostly on chin, breast, neck. Acne also used to be an issue on chest, back, face but now better after starting tx. She is still deciding on whether she wants children. Some diarrhea with metformin, even at low dose. Weight is stable. Trying to watch portion sizes and watch what she is eating. Breakfast - eggs Lunch - skips Dinner - pasta, pizza, turkey burgers, salmon, soup Snacks - none Drinks - water Not exercising much. She is taking 5000IU of vitamin D ROS: as per HPI. Remaining 12 point ROS is otherwise negative Past Medical History: PAST MEDICAL HISTORY Diagnosis Date - NEGATIVE MEDICAL HISTORY Past Surgical History: PAST SURGICAL HISTORY Procedure Laterality Date - SCAR REVISION 2007 Social History: Works in delivery at [employer] Social History Tobacco Use - Smoking status: Never Smoker - Smokeless tobacco: Never Used Substance Use Topics - Alcohol use: Not on file - Drug use: No Family History: FAMILY HISTORY Problem Relation Age of Onset - Hypertension Maternal Grandmother - Hypertension Maternal Grandfather - Cancer Paternal Grandfather Colon CA (dx 70s), prostate CA - Diabetes Paternal Grandfather - Hypertension Paternal Grandfather - other (Other) Other PCOS In a cousin -dad's side - other (Other) Paternal Uncle Endocrine tumor, it was producing too much hormone. - Cancer Other maternal great grandfather (colon CA). - Diabetes Paternal Aunt - Diabetes Paternal Aunt Medications: Current Outpatient Medications Medication Sig Dispense Refill - spironolactone (ALDACTONE) 50 mg tablet Take 1 tablet by mouth once daily. 90 tablet 3 - Norethindrone-Eth Estradiol (ALYACEN , 28,) 1-35 mg-mcg per tablet Take 1 tablet by mouth once daily. 84 tablet 3 - metFORMIN ER (GLUCOPHAGE XR) 500 mg 24 hr tablet TAKE 1 TABLET BY MOUTH EVERY DAY IN THE EVENING WITH FOOD 90 tablet 3 No current facility-administer ed medications for this visit. Allergies: ALLERGIES Allergen Reactions - Differin [Adapalene] Rash Physical Exam: BP 118/80 (BP Site: Right Arm, BP Position: Sitting, BP Cuff Size: Large Adult) Pulse 79 Ht 160 cm (5' 3 ) Wt 133.5 kg (294 lb 6.4 oz) LMP 08/28/2019 (Approximate) BMI 52.15 kg/m? General: well appearing, NAD HEENT: PERRL, EOMI, no proptosis, no lid lag Thyroid: normal size, no nodules, no bruits. No cervical lymphadenopathy. Lungs: CTA b/l Cardiac: S1, S2 normal, RRR, no m/g/r Abd: soft, not tender, not distended. Ext: no swelling b/l. Neuro: 2+ biceps reflexes bilaterally. No tremor. CN and strength grossly intact Skin: no rash, no acanthosis nigricans, no striae Labs/Imagin09/04/2021: Glucose 95, Cr 0.79 Normal LFTs and electrolytes Vitamin D25: 57 Total testo 33 TSH 2.38 PRL 14.4 03/19/2021[scanned]: TC 196, HDL 63, TG 185H, LDL 102H Glucose 112H TSH 2.28 DHEA-S 359 (18?391) Prolactin 11.0 Total testosterone 33 (2?45), free testosterone 2.1 (0.1?6.4) Vitamin D 25: 55 Assessment/Plan: 1. PCOS (polycystic ovarian syndrome) - ICD9: 256.4, ICD10: E28.2 (primary diagnosis) Meets criteria based on hirsutism, irregular menses, polycystic ovaries seen on US per pt. Continue OCP, spironolactone 50 mg daily, metformin XR 500mg qday. Menses regular on this and hirsutism controlled. We discussed that there is a PCOS SMA available at [facility] but she would not like to join this yet. She is not sure if she would like to have children. We did discuss that becoming can be difficult in the setting of PCOS and also that spironolactone is teratogenic and needs to be stopped immediately if she stops her control. 2. Class 3 obesity - ICD9: 278.00, ICD10: E66.9 3. BMI 50.0-59.9, adult (HCC) - ICD9: V85.43, ICD10: Z68.43 Offered PCOS SMA but she would like to make changes on her own first. Losing weight can also be beneficial if trying to conceive in the future. 4. Vitamin D deficiency - ICD9: 268.9, ICD10: E55.9 Vitamin D in range. Continue 5000 IU (more content not included)... Normal [facility] Juan 04-06-2021 CNPN Telephone (ENDOMN) ---- KOTA COWART ([id number]) 1995 F Date Time Provider Department 04/06/21 RICKEY BOWLES During your visit today, we recorded the following information about you: Valerie Strickland Adm 04/06/2021 4:07 PM Signed Uploaded outside labs collected on 03/19/2021 to the patient's chart for review. SUBHASH: 03/28/2021 FOV: 09/10/2021 Allergies As of Date: 04/06/2021 Noted Allergy Reaction DIFFERIN (ADAPALENE) 02/07/2008 2 - Rash Date Reviewed: 03/28/2021 Reviewed by: Latisha Viveros Ma - Fully Assessed Reason for Visit: Outside Labs Results [[id number]] Prescriptions as of 04/06/2021 - spironolactone (ALDACTONE) 50 mg tablet Take 1 tablet by mouth once daily. - Norethindrone-Eth Estradiol (ALYACEN , 28,) 1-35 mg-mcg per tablet Take 1 tablet by mouth once daily. - metFORMIN ER (GLUCOPHAGE XR) 500 mg 24 hr tablet TAKE 1 TABLET BY MOUTH EVERY DAY IN THE EVENING WITH FOOD Problem List As Of Date 04/06/2021 Noted Resolved irritated acrochordons [L91.8, L90.8] 11/15/2007 ACNE NEC [L70.8] 11/15/2007 SCAR AND FIBROSIS OF SKIN [L90.5] 11/16/2007 Androgen excess [E28.1] 04/28/2017 Encounter Status:Closed by VALERIE TURNER on 04/06/21 [facility] Juan 03-31-2021 CNPN Telephone (ENDOSO) ---- KOTA COWART ([id number]) 1995 F Date Time Provider Department 03/31/21 RICKEY BOWLES During your visit today, we recorded the following information about you: Judith Shepard Ma 03/31/2021 10:19 AM Addendum received outside lab reports placed in Dr. Bowles's folder. ALL N Rickey Bowles MD Allergies As of Date: 03/31/2021 Noted Allergy Reaction DIFFERIN (ADAPALENE) 02/07/2008 2 - Rash Date Reviewed: 03/28/2021 Reviewed by: Latisha Viveros Ma - Fully Assessed Reason for Visit: Outside Labs Results [437] Prescriptions as of 04/13/2021 - spironolactone (ALDACTONE) 50 mg tablet Take 1 tablet by mouth once daily. - Norethindrone-Eth Estradiol (ALYACEN , ,) 1-35 mg-mcg per tablet Take 1 tablet by mouth once daily. - metFORMIN ER (GLUCOPHAGE XR) 500 mg 24 hr tablet TAKE 1 TABLET BY MOUTH EVERY DAY IN THE EVENING WITH FOOD Problem List As Of Date 03/31/2021 Noted Resolved irritated acrochordons [L91.8, L90.8] 11/15/2007 ACNE NEC [L70.8] 11/15/2007 SCAR AND FIBROSIS OF SKIN [L90.5] 11/16/2007 Androgen excess [E28.1] 04/28/2017 Encounter Status:Closed by RICKEY BOWLES on 04/13/21 [facility] CNCOon 03-28-2021 CNCO Letter Text [facility] CNOVon 03-28-2021 CNOV Office Visit (ESPKEM) ---- KOTA COWART ([id number]) 1995 F Date Time Provider Department 03/28/21 3:30 PM RICKEY BOWLES During your visit today, we recorded the following information about you: Temperature Pulse Blood pressure Weight 97.7 degrees 72/minute 134/84 134.8 kg Height 1.6 m Rickey Bowles MD 03/28/2021 3:59 PM Signed Kota Nichols Sofya is a 25 year old female who is presenting today March 28, 2021 for an Androgen Excess problem. Social History Tobacco Use - Smoking status: Never Smoker - Smokeless tobacco: Never Used Substance Use Topics - Alcohol use: Not on file - Drug use: No Reason for visit: Androgen Excess and Dysmetabolic Features Previous laboratory results: OUTSIDE LABS 03/08 CHOL 196 HDL 63 TG 185 LDL 112 CMP BS 112 Cr 0.7 K 4.3 Ca 9.3 Alb $ ALT 13 Vit d 55 TESTO 33 Testo Free 2.1 DHEAS 359 PRL 11 TSH 2.28 Follwed for hirsuits Irreg periods and wy gain Dx PCOS On OCP Aldactone 50 AND Metformin ER 500 tolerates Hirsuits Poss finer less growth rate No Acne Periods OK on OCP Metabolics Wt gained BP Labile Lipids OK RBS N Nil complaints Subjective: Weight: increased, 28 lbs; Energy: stable and OK; Moods: good Sleep: Normal sleep pattern; Temp. Intolerance: None Diaphoresis: Not significant; Memory: Good Thyroid Pain: no; Mass Effect: None CV: No history of chest pain, palpitation, orthopnea, cyanosis, pedal edema; Resp: No cough, hemoptysis, asthma, recent chest infection, wheezing; GI: No blood in stool, pain with BM, tarry stool, persistent diarrhea or constipation; REPRODUCTIVE: normal and as above;Gyne: Regular Menses on OCP Eyes: Normal; Skin: Negative M/S: negative ; Neuro: negative Answers for HPI/ROS submitted by the patient on 03/21/2021 Fever : No Night Sweats: No Recent Unintentional Weight Change: No Nasal Congestion: No Hearing Loss: No Vision Disturbance: No A Cough: No Difficulty Breathing?: No Chest Pain: No Irregular Heart Beat: No Leg Swelling: No Nausea: No Diarrhea: No Black Tarry Stools: No Difficulty Urinating?: No Awaken at Night More Than Once to Urinate?: No Joint Pain or Stiffness: No Muscle Aches: No Leg or Foot Discomfort at Night?: No A Rash: No Dizziness: No Headaches: No Memory Loss: No Seizures: No Reviewed Physical Exam APPEARANCE: Well appearing, alert, in no acute distress, well-hydrated, well nourished. and Morbidly obese EYES NIKOLAY, negative, fundi normal NECK Supple, no adenopathy; thyroid symmetric, normal size, no bruits Mild hirsuits Mild small acne HEART RRR with normal S1 and S2, no murmurs, no gallops, no JVD appreciated LUNGS clear to auscultation ABD bowel sounds normoactive, no bruits, soft, non-tender, non-distended, without organomegaly or palpable masses, no tenderness to palpation EXTREMITIES Normal, No deformities, No skin discoloration, No edema and Normal pulses bilaterally. NEURO Awake, alert and oriented x 3, No involuntary motions., Reflexes symmetrical, Cranial nerves II-XII grossly intact, Normal gait and Monofilament normal SKIN Skin color, texture, turgor normal, no suspicious rashes or lesions Impression: SYMP CLIN BIOCHEM ANDROGEN EXCESS CONTROLLED DYSMETABOLIC WT UP BP OK LIPIDS MARGINAL BS OK VIT D OK Recommendations: TESTO REENA DHEAS PRL TSH CMP VIT D IN 6 MTHS AND RTC AFTER Rickey Bowles MD Referring Provider: RICKEY BOWLES [[id number]] Allergies As of Date: 03/28/2021 Noted Allergy Reaction DIFFERIN (ADAPALENE) 02/07/2008 2 - Rash Date Reviewed: 03/28/2021 Reviewed by: Latisha Viveros Ma - Fully Assessed Reason for Visit: pcos [Other] Primary Visit Diagnosis:Other acne [L70.8] Other Visit Diagnosis:Androgen excess [E28.1] Order(s):spironolac tone (ALDACTONE) 50 mg tabletTake 1 tablet by mouth once daily.Disp: 90 tabletRfl: 3 Norethindrone-Eth Estradiol (ALYACEN , 28,) 1-35 mg-mcg per tabletTake 1 tablet by mouth once daily.Disp: 84 tabletRfl: 3 metFORMIN ER (GLUCOPHAGE XR) 500 mg 24 hr tabletTAKE 1 TABLET BY MOUTH EVERY DAY IN THE EVENING WITH FOODDisp: 90 tabletRfl: 3 Prescriptions as of 03/28/2021 - spironolactone (ALDACTONE) 50 mg tablet Take 1 tablet by mouth once daily. - Norethindrone-Eth Estradiol (ALYACEN , 28,) 1-35 mg-mcg per tablet Take 1 tablet by mouth once daily. - metFORMIN ER (GLUCOPHAGE XR) 500 mg 24 hr tablet TAKE 1 TABLET BY MOUTH EVERY DAY IN THE EVENING WITH FOOD Problem List As Of Date 03/28/2021 Noted Resolved irritated acrochordons [L91.8, L90.8] 11/15/2007 ACNE NEC [L70.8] 11/15/2007 SCAR AND FIBROSIS OF SKIN [L90.5] 11/16/2007 Androgen excess [E28.1] 04/28/2017 Prescriptions ordered this encounter Disp Refills Start End SPIRONOLACTONE 50 MG TABLET 90 t* 3 03/28/2021 03/28/2022 Route: ORAL Sig: Take 1 tablet by mouth once daily. ALYACEN (28) 1 MG-35 MCG TABLET 84 t* 3 03/28/202102/15 (more content not included)... Normal [facility] Vital Signs Date Time Vital Sign Value Performing Clinician Faci lity 10-24-2024 13:03-0400 Body mass index (BMI) [Ratio] 49.42 kg/m2 Quyen JAIMES Work Phone: [facility] 10-24-2024 13:03-0400 Body weight 126.55 kg Quyen JAIMES Work Phone: [facility] 10-24-2024 13:03-0400 Diastolic blood pressure 90 mm[Hg] Quyen JAIMES Work Phone: [facility] 10-24-2024 13:03-0400 Systolic blood pressure 138 mm[Hg] Quyen JAIMES Work Phone: [facility] 10-19-2023 14:16-0400 Body mass index (BMI) [Ratio] 47.97 kg/m2 Shaheed Wade DO Work Phone: [facility] 10-19-2023 14:16-0400 Body weight 122.83 kg Shaheed Wade DO Work Phone: [facility] 10-19-2023 14:16-0400 Diastolic blood pressure 82 mm[Hg] Shaheed Wade DO Work Phone: [facility] 10-19-2023 14:16-0400 Systolic blood pressure 120 mm[Hg] Shaheed Wade DO Work Phone: [facility] 09-10-2021 16:23-0400 Body height 160 cm Estela Pérez MD Work Phone: [facility] 09-10-2021 16:23-0400 Body weight 133.54 kg Estela Pérez MD Work Phone: [facility] 09-10-2021 16:23-0400 Diastolic blood pressure 80 mm[Hg] Estela Pérez MD Work Phone: [facility] 09-10-2021 16:23-0400 Heart rate 79 /min Estela Pérez MD Work Phone: [facility] 09-10-2021 16:23-0400 Systolic blood pressure 118 mm[Hg] Estela Pérez MD Work Phone: [facility] Encounters Encounter Date Encounter Type Care Provider Facility Start: 10-24-2024 End: 10-24-2024 Bamboo flowsheet Shaheed Wade DO Work Phone: [facility] Start: 10-24-2024 End: 10-24-2024 Bamboo flowsheet Shaheed Wade DO Work Phone: [facility] Start: 10-24-2024 End: 10-24-2024 Patient encounter procedure Quyen JAIMES Work Phone: [facility] Start: 10-24-2024 End: 10-24-2024 Periodic preventive med est patient 18-39 yrs Quyen JAIMES Work Phone: [facility] Comment on above: Well woman exam with routine gynecological exam; Uterine polyp; Urinary urgency; Retention of urine Start: 09-18-2024 End: 09-18-2024 ambulatory QUYEN COPELAND Not Available Start: 10-19-2023 End: 10-19-2023 Patient encounter procedure Shaheed Wade DO Work Phone: [facility] Work Phone: Start: 10-19-2023 End: 10-19-2023 Periodic preventive med est patient 18-39 yrs Shaheed Wade DO Work Phone: [facility] Comment on above: Well woman exam with routine gynecological exam Start: 10-19-2023 End: 10-19-2023 Bamboo flowsheet Shaheed Wade DO Work Phone: [facility] Start: 10-19-2023 End: 10-19-2023 Bamboo flowsheet Shaheed Olvera DO Work Phone: [facility] Start: 10-19-2023 End: 10-19-2023 ambulatory SHAHEED OLVERA Not Available Start: 09-18-2023 End: 10-22-2023 Clinisync Result Encounter Shaheed Wade DO Work Phone: [facility] Unsolicited Start: 09-18-2023 End: 10-22-2023 Clinisync Result Encounter Shaheed Wade DO Work Phone: [facility] Unsolicited Start: 04-11-2022 End: 04-12-[address] SHAHEED OLVERA . Facility: Start: 12-22-2021 Telephone encounter Estela sims MD Work Phone: Endocrinology Comment on above: Patient Question Start: 09-10-2021 End: 09-10-2021 ambulatory ESTELA PÉREZ Facility:[facility] Start: 09-10-2021 End: 09-10-2021 Patient encounter procedure Estela Pérez MD Work Phone: Endocrinology Comment on above: PCOS (polycystic ova bernardo syndrome) (Primary Dx); Class 3 obesity; BMI 50.0-59.9, adult (HCC); Vitamin D deficiency; Impaired fasting glucose Start: 03-28-2021 End: 03-28-2021 ambulatory ALICIA MAGDALENO Facility:[facility] Start: 08-13-2016 End: 08-14-2016 Ambulatory Michel Chavez Facility::[id number] Procedures Date Procedure Procedure Detail Performing Clinician Start: 09-18-2023 IGP,APTIMA HPV,AGE GDLN Shaheed Olvera DO Work Phone: Plan of Treatment Date Care Activity Detail Author Start: 11-05-2025 End: 11-05-2025 Patient encounter procedure 11/05/2025 11:00 AM EDT Procedure Visit [facility] [address] [place] [address] [place] [phone] Shaheed Olvera DO [address] [place] [address] [facility] Start: 11-02-2024 End: 11-02-2024 Patient encounter procedure 11/02/2024 8:30 AM EDT Consult [facility] [address] [facility] [place] [id number] Shaheed Olvera, DO [address] [facility] [place] [address] [facility] Start: 10-24-2024 End: 10-24-2024 Patient encounter procedure [facility] Comment on above: Arrived Start: 10-16-2024 Influenza vaccination Influenza Vacc ine (#1) [facility] Start: 10-19-2023 End: 10-19-2023 Patient encounter procedure 10/19/2023 10:40 AM EDT Office Visit [facility] [address] [facility] [facility] [address] [place] [phone] Shaheed Olvera, DO [address] [facility] [place] [address] Arrived [facility] Comment on above: Arrived Start: 10-17-2023 Influenza vaccination Influenza Vacc ine (#1) [facility] Start: 10-16-2021 Influenza vaccination INFLUENZA (#1) [facility] Start: 02-15-2021 DEPRESSION ASSESSMENT DEPRESSION ASS ESSMENT [facility] Start: 11-17-2020 COVID-19 VACCINE (3 - Booster for Pfizer series) COVID-19 VACCINE (3 - Booster for Pfizer series) [facility] Start: 08-12-2020 COVID-19 VACCINE (3 - Booster for Pfizer series) COVID-19 VACCINE (3 - Booster for Pfizer series) [facility] Start: 2017 PAP TESTING PAP TESTING [facility] Start: 2014 HEPATITIS C SCREENING HEPATITIS C SC REENING [facility] Start: 2014 HIV SCREENING HIV SCREENING [facility] Start: 2010 PEDS TO ADULT TRANSITION ANNUAL ASSESSMENT PEDS TO ADULT TRANSITION ANNUAL ASSESSMENT [facility] Start: 2008 Adult depression screening assessment DEPRESSION SCREENING [facility] Start: 2008 PEDS TO ADULT TRANSITION INITIAL DISCUSSION PEDS TO ADULT TRANSITION INITIAL DISCUSSION [facility] Start: 04-22-2007 HPV VACCINE (1 - 2-d ose series) HPV VACCINE (1 - 2-dose series) [facility] Start: 04-22-2007 Urine microalbumin profile DTAP,TDAP,TD (5 - Tdap) [facility] Cytology Cervical or vaginal smear or scraping study Pap Smear Pathology and Cytology Routine Well woman exam with routine gynecological exam Ordered: 10/19/2023 [employer] Work Phone: Comment on above: Ordered: 10/19/2023 Cytology Cervical or vaginal smear or scraping study Pap Smear Pathology and Cytology Routine Well woman exam with routine gynecological exam Ordered: 10/24/2024 [employer] Work Phone: Comment on above: Ordered: 10/24/2024 [facility] Immunizations Immunization Date Immunization Notes Care Provider Fa [facility] 10-03-1997 diphtheria, tetanus toxoids and acellular pertussis vaccine, unspecified formulation Estela Pérez MD Work Phone: [facility] 10-03-1997 haemophilus influenz ae type b vaccine, conjugate unspecified formulation Estela Pérez MD Work Phone: [facility] 10-03-1997 measles, mumps and rubella virus vaccine Estela Pérez MD Work Phone: [facility] 1995 diphtheria, tetanus toxoids and acellular pertussis vaccine, unspecified formulation Estela Pérez MD Work Phone: [facility] 1995 haemophilus influenz ae type b conjugate and Hepatitis B vaccine Estela Pérez MD Work Phone: [facility] 1995 trivalent poliovirus vaccine, live, oral Estela Pérez MD Work Phone: [facility] 1995 diphtheria, tetanus toxoids and acellular pertussis vaccine, unspecified formulation Estela Pérez MD Work Phone: [facility] 1995 haemophilus influenz ae type b vaccine, conjugate unspecified formulation Estela Pérez MD Work Phone: [facility] 1995 trivalent poliovirus vaccine, live, oral Estela Pérez MD Work Phone: [facility] 1995 diphtheria, tetanus toxoids and acellular pertussis vaccine, unspecified formulation Estela Pérez MD Work Phone: [facility] 1996 haemophilus influenz ae type b vaccine, conjugate unspecified formulation Estela Pérez MD Work Phone: [facility] 1995 hepatitis B vaccine, pediatric or pediatric/adolescent dosage Estela Pérez MD Work Phone: [facility] 1995 trivalent poliovirus vaccine, live, oral Estela Pérez MD Work Phone: [facility] 1996 hepatitis B vaccine, pediatric or pediatric/adolescent dosage Estela Pérez MD Work Phone: [facility] Payers Date Payer Category Payer Private Health Insurance [id number] 2022 Private Health Insurance [id number] 2021 Unknown [facility] [id number] 2021-Present [phone] [address] Indemnity [id number] 2021 Unknown [facility] [id number] 2021-Present [phone] [id number] [place] [address] Indemnity [id number] 2020 Unknown [id number] 1996 Unknown [id number] 1996 Unknown [id number] 1996 Unknown [id number] Unknown [id number] Social History Date Type Detail Facility Start: 04-28-2017 End: 07-16-2022 Tobacco smoking status NHIS Never smoked tobacco [facility] Work Phone: Start: 09-10-2021 Alcohol intake Not Asked Dale molina [facility] Start: 1995 Sex Assigned At Not on file [facility] Start: 04-28-2017 End: 07-16-2022 Tobacco use and exposure Smokeless tobacco non-user [facility] Start: 09-10-2022 End: 10-24-2024 Alcoholic beverage intake Lifetime non-drinker (finding) [facility] Start: 09-10-2022 End: 10-24-2024 History of Social function [facility] Start: 09-10-2022 End: 10-24-2024 Tobacco use panel [facility] Start: 07-15-2022 Alcohol Comment caffeine intak e: occasional [facility] Start: 10-17-2024 Gender identity Identifies as female gender (finding) [facility] History of Present illness Narrative 10-24-2024 THEODORE Ardon - 10/24/2024 1:10 PM EDT Note Date & Type Note Facility 10-24-2024 History of Presen t illness Narrative Reason for Appointment: Patient ID: Kota Pulido is a 29 y.o. female who [...] Name Age of Onset Thyroid disease Father Doenll SURGICAL HISTORY Past Surgical History: Procedure Laterality [...] nursing note reviewed. Exam conducted with a education dean present. Vitals: Estimated body mass index is 49.42 kg/m as calculated from the following: Height as [...] iud placement. . Pt being referred to urology for eval Patients vitals were reviewed and [...] with those once we have them. Patient can also view results via [employer]. I reinforced importance of condom use for [...] of: THEODORE Ardon documented in this encounter [facility] History of Present illness Narrative 10-19-2023 Chelsey Guidry LPN - 10/19/2023 2:10 PM EDT Note Date & Type Note Facility 10-19-2023 History of Presen t illness Narrative Reason for Appointment: Patient ID: Kota Pulido is a 28 y.o. female who presents for Well Women Visit Patient presents today for Annual Exam. MEDICATIONS Current Outpatient Medications Medication Instructions desogestrel-ethinyl estradiol (Apri) 0.15-30 MG-MCG tablet 1 tablet, Oral, Daily, as directed fexofenadine-pseudoephedrine ER (Deisi-D) 60-120 MG 12 hr tablet 1 tablet, Oral, 2 times daily, Do not crush, chew, or split. metFORMIN (GLUCOPHAGE) 500 mg, Oral, 2 times daily with meals spironolactone (ALDACTONE) 50 mg, Oral, Daily ALLERGIES Allergies Allergen Reactions Adapalene Unknown PROBLEMS Active Ambulatory Problems Diagnosis Date Noted No Active Ambulatory Problems Resolved Ambulatory Problems Diagnosis Date Noted No Resolved Ambulatory Problems Past Medical History: Diagnosis Date Asthma (CMS/HCC) PCOS (polycystic ovarian syndrome) HISTORY PAST MEDICAL HISTORY SOCIAL HISTORY Past Medical History: Diagnosis Date Asthma (CMS/HCC) PCOS (polycystic ovarian syndrome) Social History Tobacco Use Smoking status: Never Smokeless tobacco: Never Substance Use Topics Alcohol use: Never Comment: caffeine intake: occasional Drug use: Never FAMILY HISTORY Family History Problem Relation Name Age of Onset Thyroid disease Father Donell SURGICAL HISTORY Past Surgical History: Procedure Laterality Date COSMETIC SURGERY LT eye; disease TONSILLECTOMY 01/2011 [facility] Inf. Turbs REVIEW OF SYSTEMS Review of Systems: Review of Systems Constitutional: Negative. HENT: Negative. Eyes: Negative. Respiratory: Negative. Cardiovascular: Negative. Gastrointestinal: Negative. Genitourinary: Negative. Musculoskeletal: Negative. Skin: Negative. Neurological: Negative. All other systems reviewed and are negative. Hematological: Negative. Endocrine: Negative. Allergic/Immunologic: Negative. OBJECTIVE Objective: Physical Exam Constitutional: Appearance: Normal appearance. She is well-developed. Genitourinary: Vulva normal. Breasts: Breasts are soft. Right: Normal. Left: Normal. Cardiovascular: Rate and Rhythm: Normal rate and [...] nursing note reviewed. Exam conducted with a education dean present. Vitals: Estimated body mass index is 47.97 kg/m as calculated from the following: Height as of an earlier encounter on 24: 5' 3 . Weight as of this encounter: 270 lb 12.8 oz. BP: 120/82 Patient's last menstrual period was 09/18/2023. ASSESSMENT & PLAN ICD-10-CM 1. Well woman exam with routine gynecological exam Z01.419 Pap Smear Annual Exam: Patient presents today for an annual exam. Patient states she is doing well and has no complaints. Pap was obtained without difficulty. No orders of the defined types were placed in this encounter. Follow Up: Patient is to return in one year for annual unless needed otherwise. Documented by Chelsey Guidry LPN on behalf of: Shaheed Olvera DO documented in this encounter [facility] Healthcare Note 12-22-2021 Telephone Encounter - Kaylynn Cheek - 12/22/2021 12:05 PM EST Note Date & Type Note Facility 12-22-2021 Miscellaneous Notes Formattin g of this note might be different from the original. Wants her insurance to be prebilled. Gave her billing number. Kaylynn Cheek [facility] documented in this encounter [facility] Progress note 09-10-2021 Note Date & Type Note Facility 09-10-2021 Note HNO ID: [id number] Author: Estela Pérez MD Service: ? Author Type: Physician Type: Progress Notes Filed: 09/10/2021 5:03 PM Note Text: Endocrinology Initial Consult Visit CC: PCOS Referring Provider: Alicia Magdaleno MD HPI: 26 y/o woman with PCOS here for follow up. Previously followed by Dr. Bowles, last seen 03/28/2021. Today is my first time meeting her. She is here today with her fiance. Menarche around 8th grade, periods never regular. Started on OCPs about 4 years ago. Menses are regular on this. She was told she had cysts on her ovaries on previous ultrasounds. Used to have issues with hair growth but improved since spironolactone and metformin. Mostly on chin, breast, neck. Acne also used to be an issue on chest, back, face but now better after starting tx. She is still deciding on whether she wants children. Some diarrhea with metformin, even at low dose. Weight is stable. Trying to watch portion sizes and watch what she is eating. Breakfast - eggs Lunch - skips Dinner - pasta, pizza, turkey burgers, salmon, soup Snacks - none Drinks - water Not exercising much. She is taking 5000IU of vitamin D ROS: as per HPI. Remaining 12 point ROS is otherwise negative Past Medical History: PAST MEDICAL HISTORY Diagnosis Date - NEGATIVE MEDICAL HISTORY Past Surgical History: PAST SURGICAL HISTORY Procedure Laterality Date - SCAR REVISION 2007 Social History: Works in delivery at [employer] Social History Tobacco Use - Smoking status: Never Smoker - Smokeless tobacco: Never Used Substance Use Topics - Alcohol use: Not on file - Drug use: No Family History: FAMILY HISTORY Problem Relation Age of Onset - Hypertension Maternal Grandmother - Hypertension Maternal Grandfather - Cancer Paternal Grandfather Colon CA (dx 70s), prostate CA - Diabetes Paternal Grandfather - Hypertension Paternal Grandfather - other (Other) Other PCOS In a cousin -dad's side - other (Other) Paternal Uncle Endocrine tumor, it was producing too much hormone. - Cancer Other maternal great grandfather (colon CA). - Diabetes Paternal Aunt - Diabetes Paternal Aunt Medications: Current Outpatient Medications Medication Sig Dispense Refill - spironolactone (ALDACTONE) 50 mg tablet Take 1 tablet by mouth once daily. 90 tablet 3 - Norethindrone-Eth Estradiol (ALYACEN , 28,) 1-35 mg-mcg per tablet Take 1 tablet by mouth once daily. 84 tablet 3 - metFORMIN ER (GLUCOPHAGE XR) 500 mg 24 hr tablet TAKE 1 TABLET BY MOUTH EVERY DAY IN THE EVENING WITH FOOD 90 tablet 3 No current facility-administered medications for this visit. Allergies: ALLERGIES Allergen Reactions - Differin [Adapalene] Rash Physical Exam: BP 118/80 (BP Site: Right Arm, BP Position: Sitting, BP Cuff Size: Large Adult) Pulse 79 Ht 160 cm (5' 3 ) Wt 133.5 kg (294 lb 6.4 oz) LMP 08/28/2019 (Approximate) BMI 52.15 kg/m? General: well appearing, NAD HEENT: PERRL, EOMI, no proptosis, no lid lag Thyroid: normal size, no nodules, no bruits. No cervical lymphadenopathy. Lungs: CTA b/l Cardiac: S1, S2 normal, RRR, no m/g/r Abd: soft, not tender, not distended. Ext: no swelling b/l. Neuro: 2+ biceps reflexes bilaterally. No tremor. CN and strength grossly intact Skin: no rash, no acanthosis nigricans, no striae Labs/Imagin09/04/2021: Glucose 95, Cr 0.79 Normal LFTs and electrolytes Vitamin D25: 57 Total testo 33 TSH 2.38 PRL 14.4 03/19/2021[scanned]: TC 196, HDL 63, TG 185H, LDL 102H Glucose 112H TSH 2.28 DHEA-S 359 (18?391) Prolactin 11.0 Total testosterone 33 (2?45), free testosterone 2.1 (0.1?6.4) Vitamin D 25: 55 Assessment/Plan: 1. PCOS (polycystic ovarian syndrome) - ICD9: 256.4, ICD10: E28.2 (primary diagnosis) Meets criteria based on hirsutism, irregular menses, polycystic ovaries seen on US per pt. Continue OCP, spironolactone 50 mg daily, metformin XR 500mg qday. Menses regular on this and hirsutism controlled. We discussed that there is a PCOS SMA available at [facility] but she would not like to join this yet. She is not sure if she would like to have children. We did discuss that becoming can be difficult in the setting of PCOS and also that spironolactone is teratogenic and needs to be stopped immediately if she stops her control. 2. Class 3 obesity - ICD9: 278.00, ICD10: E66.9 3. BMI 50.0-59.9, adult (HCC) - ICD9: V85.43, ICD10: Z68.43 Offered PCOS SMA but she would like to make changes on her own first. Losing weight can also be beneficial if trying to conceive in the future. 4. Vitamin D deficiency - ICD9: 268.9, ICD10: E55.9 Vitamin D in range. Continue 5000 IU vitamin D daily. 5. Impaired fasting glucose - ICD9: 790.21, ICD10: R73.01 Improved on most recent blood work. Continue metformin XR 500 mg daily. - repeat lipid panel, A1c, fasting CMP, TSH before next OV RTC 6 months Estela Pérez MD I jesse (more content not included)... [facility] History of Present illness Narrative 09-10-2021 Estela Pérez MD - 09/10/2021 4:20 PM EDT Note Date & Type Note Facility 09-10-2021 History of Presen t illness Narrative Endocrinology Initial Consult Visit CC: PCOS Referring Provider: Alicia Magdaleno MD HPI: 26 y/o woman with PCOS here for follow up. Previously followed by Dr. Bowles, last seen 03/28/2021. Today is my first time meeting her. She is here today with her fiance. Menarche around 8th grade, periods never regular. Started on OCPs about 4 years ago. Menses are regular on this. She was told she had cysts on her ovaries on previous ultrasounds. Used to have issues with hair growth but improved since spironolactone and metformin. Mostly on chin, breast, neck. Acne also used to be an issue on chest, back, face but now better after starting tx. She is still deciding on whether she wants children. Some diarrhea with metformin, even at low dose. Weight is stable. Trying to watch portion sizes and watch what she is eating. Breakfast - eggs Lunch - skips Dinner - pasta, pizza, turkey burgers, salmon, soup Snacks - none Drinks - water Not exercising much. She is taking 5000IU of vitamin D ROS: as per HPI. Remaining 12 point ROS is otherwise negative Past Medical History: PAST MEDICAL HISTORY Diagnosis Date NEGATIVE MEDICAL HISTORY Past Surgical History: PAST SURGICAL HISTORY Procedure Laterality Date SCAR REVISION 2007 Social History: Works in delivery [employer] Social History Tobacco Use Smoking status: Never Smoker Smokeless tobacco: Never Used Substance Use Topics Alcohol use: Not on file Drug use: No Family History: FAMILY HISTORY Problem Relation Age of Onset Hypertension Maternal Grandmother Hypertension Maternal Grandfather Cancer Paternal Grandfather Colon CA (dx 70s), prostate CA Diabetes Paternal Grandfather Hypertension Paternal Grandfather other (Other) Other PCOS In a cousin -dad's side other (Other) Paternal Uncle Endocrine tumor, it was producing too much hormone. Cancer Other maternal great grandfather (colon CA). Diabetes Paternal Aunt Diabetes Paternal Aunt Medications: Current Outpatient Medications Medication Sig Dispense Refill spironolactone (ALDACTONE) 50 mg tablet Take 1 tablet by mouth once daily. 90 tablet 3 Norethindrone-Eth Estradiol (ALYACEN , 28,) 1-35 mg-mcg per tablet Take 1 tablet by mouth once daily. 84 tablet 3 metFORMIN ER (GLUCOPHAGE XR) 500 mg 24 hr tablet TAKE 1 TABLET BY MOUTH EVERY DAY IN THE EVENING WITH FOOD 90 tablet 3 No current facility-administered medications for this visit. Allergies: ALLERGIES Allergen Reactions Differin [Adapalene] Rash Physical Exam: BP 118/80 (BP Site: Right Arm, BP Position: Sitting, BP Cuff Size: Large Adult) Pulse 79 Ht 160 cm (5' 3 ) Wt 133.5 kg (294 lb 6.4 oz) LMP 08/28/2019 (Approximate) BMI 52.15 kg/m General: well appearing, NAD HEENT: PERRL, EOMI, no proptosis, no lid lag Thyroid: normal size, no nodules, no bruits. No cervical lymphadenopathy. Lungs: CTA b/l Cardiac: S1, S2 normal, RRR, no m/g/r Abd: soft, not tender, not distended. Ext: no swelling b/l. Neuro: 2+ biceps reflexes bilaterally. No tremor. CN and strength grossly intact Skin: no rash, no acanthosis nigricans, no striae Labs/Imagin09/04/2021: Glucose 95, Cr 0.79 Normal LFTs and electrolytes Vitamin D25: 57 Total testo 33 TSH 2.38 PRL 14.4 03/19/2021[scanned]: TC 196, HDL 63, TG 185H, LDL 102H Glucose 112H TSH 2.28 DHEA-S 359 (18 391) Prolactin 11.0 Total testosterone 33 (2 45), free testosterone 2.1 (0.1 6.4) Vitamin D 25: 55 Assessment/Plan: 1. PCOS (polycystic ovarian syndrome) - ICD9: 256.4, ICD10: E28.2 (primary diagnosis) Meets criteria based on hirsutism, irregular menses, polycystic ovaries seen on US per pt. Continue OCP, spironolactone 50 mg daily, metformin XR 500mg qday. Menses regular on this and hirsutism controlled. We discussed that there is a PCOS SMA available at [facility] but she would not like to join this yet. She is not sure if she would like to have children. We did discuss that becoming can be difficult in the setting of PCOS and also that spironolactone is teratogenic and needs to be stopped immediately if she stops her control. 2. Class 3 obesity - ICD9: 278.00, ICD10: E66.9 3. BMI 50.0-59.9, adult (HCC) - ICD9: V85.43, ICD10: Z68.43 Offered PCOS SMA but she would like to make changes on her own first. Losing weight can also be beneficial if trying to conceive in the future. 4. Vitamin D deficiency - ICD9: 268.9, ICD10: E55.9 Vitamin D in range. Continue 5000 IU vitamin D daily. 5. Impaired fasting glucose - ICD9: 790.21, ICD10: R73.01 Improved on most recent blood work. Continue metformin XR 500 mg daily. - repeat lipid panel, A1c, fasting CMP, TSH before next OV RTC 6 months Estela Pérez MD I spent a total of 45 minutes on the date of the service which included preparing to see the patient, [id number] patient care, completing clinical documentation, obtaining and/or reviewing separately obtained history, performing a medically appropriate examination, counseling and educating the patient/family/caregiver and ordering medications, tests, or procedures. documented in this encounter [facility] Progress note 03-28-2021 Note Date & Type Note Facility 03-28-2021 Note HNO ID: [id number] Author: Rickey Bowles MD Service: ? Author Type: Physician Type: Progress Notes Filed: 03/28/2021 3:59 PM Note Text: Kota Cowart is a 25 year old female who is presenting today March 28, 2021 for an Androgen Excess problem. Social History Tobacco Use - Smoking status: Never Smoker - Smokeless tobacco: Never Used Substance Use Topics - Alcohol use: Not on file - Drug use: No Reason for visit: Androgen Excess and Dysmetabolic Features Previous laboratory results: OUTSIDE LABS 03/08 CHOL 196 HDL 63 TG 185 LDL 112 CMP BS 112 Cr 0.7 K 4.3 Ca 9.3 Alb $ ALT 13 Vit d 55 TESTO 33 Testo Free 2.1 DHEAS 359 PRL 11 TSH 2.28 Follwed for hirsuits Irreg periods and wy gain Dx PCOS On OCP Aldactone 50 AND Metformin ER 500 tolerates Hirsuits Poss finer less growth rate No Acne Periods OK on OCP Metabolics Wt gained BP Labile Lipids OK RBS N Nil complaints Subjective: Weight: increased, 28 lbs; Energy: stable and OK; Moods: good Sleep: Normal sleep pattern; Temp. Intolerance: None Diaphoresis: Not significant; Memory: Good Thyroid Pain: no; Mass Effect: None CV: No history of chest pain, palpitation, orthopnea, cyanosis, pedal edema; Resp: No cough, hemoptysis, asthma, recent chest infection, wheezing; GI: No blood in stool, pain with BM, tarry stool, persistent diarrhea or constipation; REPRODUCTIVE: normal and as above;Gyne: Regular Menses on OCP Eyes: Normal; Skin: Negative M/S: negative ; Neuro: negative Answers for HPI/ROS submitted by the patient on 03/21/2021 Fever : No Night Sweats: No Recent Unintentional Weight Change: No Nasal Congestion: No Hearing Loss: No Vision Disturbance: No A Cough: No Difficulty Breathing?: No Chest Pain: No Irregular Heart Beat: No Leg Swelling: No Nausea: No Diarrhea: No Black Tarry Stools: No Difficulty Urinating?: No Awaken at Night More Than Once to Urinate?: No Joint Pain or Stiffness: No Muscle Aches: No Leg or Foot Discomfort at Night?: No A Rash: No Dizziness: No Headaches: No Memory Loss: No Seizures: No Reviewed Physical Exam APPEARANCE: Well appearing, alert, in no acute distress, well-hydrated, well nourished. and Morbidly obese EYES NIKOLAY, negative, fundi normal NECK Supple, no adenopathy; thyroid symmetric, normal size, no bruits Mild hirsuits Mild small acne HEART RRR with normal S1 and S2, no murmurs, no gallops, no JVD appreciated LUNGS clear to auscultation ABD bowel sounds normoactive, no bruits, soft, non-tender, non-distended, without organomegaly or palpable masses, no tenderness to palpation EXTREMITIES Normal, No deformities, No skin discoloration, No edema and Normal pulses bilaterally. NEURO Awake, alert and oriented x 3, No involuntary motions., Reflexes symmetrical, Cranial nerves II-XII grossly intact, Normal gait and Monofilament normal SKIN Skin color, texture, turgor normal, no suspicious rashes or lesions Impression: SYMP CLIN BIOCHEM ANDROGEN EXCESS CONTROLLED DYSMETABOLIC WT UP BP OK LIPIDS MARGINAL BS OK VIT D OK Recommendations: TESTO REENA DHEAS PRL TSH CMP VIT D IN 6 MTHS AND RTC AFTER Rickey Bowles MD [facility] Evaluation note Note Date & Type Note Facility Evaluation note Diagnosis PCOS (polycystic ovarian syndrome)- Primary Polycystic ovaries Class 3 obesity BMI 50.0-59.9, adult (HCC) Body Mass Index 50.0-59.9, adult Vitamin D deficiency Unspecified vitamin D deficiency Impaired fasting glucose documented in this encounter [facility] Evaluation note Note Date & Type Note Facility Evaluation note Diagnosis Well woman exam with routine gynecological exam Routine gynecological examination documented in this encounter [facility] Healthcare Evaluation note Note Date & Type Note Facility Evaluation note Diagnosis Well woman exam with routine gynecological exam Routine gynecological examination Uterine polyp Polyp of corpus uteri Urinary urgency Urgency of urination Retention of urine Unspecified retention of urine documented in this encounter [facility] Healthcare Summary Purpose Family History No Family History Records FoundNo Family History Records FoundNo Family History Records FoundNo Family History Records Found Advance Directives No Advanced Directives Records FoundNo Advanced Directives Records FoundNo Advanced Directives Records FoundNo Advanced Directives Records Found Additional Source Comments INFORMATION SOURCE (unrecogn ized section and content) DATE CREATED AUTHOR 08/11/2017 [place] [facility] [facility] DATE CREATED AUTHOR AUTHOR'S ORGANIZ ATION 12/23/2021 [facility] DATE CREATED AUTHOR AUTHOR'S ORGANIZ ATION 04/24/2022 [facility] DATE CREATED AUTHOR AUTHOR'S ORGANIZ ATION 09/20/2024 [facility] EPIC Source Comments (unrecognize d section and content) In the event this informatio n is protected by the Federal Confidentiality of Alcohol and Drug Abuse Patient Records regulations: The Federal rules restrict any use of the information to criminally investigate or prosecute any alcohol or drug abuse patient.[facility] the event this information is protected by the Federal Confidentiality of Alcohol and Drug Abuse Patient Records regulations: The Federal rules restrict any use of the information to criminally investigate or prosecute any alcohol or drug abuse patient.[facility] Reason for Visit (unrecogniz ed section and content) Reason Comments Polycystic Ovarian Syndrome Reason Comments Patient Question Reason Comments Well Women Visit Reason Comments Gynecologic Exam Care Teams (unrecognized sec tion and content) School Librarian Relationship Specialty Start Date End Date Fawad Wyman MD [address] [id number] PCP - General Family Practice 09/10/21 School Librarian Relationship Specialty Start Date End Date Fawad Wyman MD [address] [place] [address] PCP - General Family Medicine 09/10/21 School Librarian Relationship Specialty Start Date End Date Fawad Wyman MD [address] [place] [address] PCP - General Family Medicine 07/16/22 School Librarian Relationship Specialty Start Date End Date Fawad Wyman MD [address] [facility] [place] [address] PCP - General Family Medicine 07/16/22 School Librarian Relationship Specialty Start Date End Date Fawad Wyman MD [address] [facility] [place] [address] PCP - General Family Medicine 07/16/22 School Librarian Relationship Specialty Start Date End Date Fawad Wyman MD [address] [facility] [place] [address] PCP - General Family Medicine 07/16/22 School Librarian Relationship Specialty Start Date End Date Fawad Wyman MD [address] [facility] [place] [address] PCP - General Family Medicine 07/16/22 FOR RECORDS PERTAINING TO PATIENTS WHO ARE OR HAVE BEEN ENROLLED IN A CHEMICAL DEPENDENCY/SUBSTANCEABUSE PROGRAM, SOME INFORMATION MAY BE OMITTED. This clinical summary was aggregated from multiple sources. Caution should be exercised in using it in the provision of clinical care. This summary normalizes information from multiple sources, and as a consequence, information in this document may materially change the coding, format and clinical context of patient data. In addition, data may be omitted in some cases. CLINICAL DECISIONS SHOULD BE BASED ON THE PRIMARY CLINICAL RECORDS. [facility]. provides no warranty or guarantee of the accuracy or completeness of information in this document.
[2024-10-27 13:08] LABS: Age Gdln ACOG Testing Note (.); IGP, rfx Aptima HPV ASCU Note (.)
== END 2024-10-24 19:42 | disposition home or self-care (01) ==
LOC: LAB 19:41
PROVIDERS: PCP Obstetrics & Gynecology; Visit Provider Obstetrics & Gynecology
DX: Z01.419 Encounter for gynecological examination (general) (routine) without abnormal findings (principal)
CPT/HCPCS: 88175